=== PATIENT | female | born 1995 | race Caucasian/White ===

== ENCOUNTER 2018-04-06 13:06 | Emergency (ER) | payer BC, OTHER ==
[2018-04-06 14:13] VITALS: BP 115/73
[2018-04-06] MEDS ORDERED: HYDROmorphone 0.5 MG/0.5 ML SYRINGE IVPUSH ONE ×2 (14:57→17:26)
[2018-04-06] MEDS ORDERED: Sodium Chloride 0.9% 10 ML Syringe FLUSH PRN (14:57)
[2018-04-06] MEDS ORDERED: Ondansetron 4 MG/2 ML SDV IVPUSH ONE ×2 (14:58→17:49)
[2018-04-06] MEDS ORDERED: Sodium Chloride 0.9% 1,000 ML IV ONE ×2 (14:58→17:26)
--- NOTE | 2018-04-06 16:09 | EDM.PDOC ---
ED HPI GENERAL MEDICAL PROBLEM - General Chief Complaint: Abdominal Pain Stated Complaint: LOW ABDOMEN PAIN Time Seen by Provider: 04/06/18 14:45 Source of Information: Reports: Patient History Limitations: Reports: No Limitations - History of Present Illness INITIAL COMMENTS - FREE TEXT/NARRATIVE: 23-year-old female presents for evaluation and treatment of pain to her left lower abdomen and left flank. Reported that the symptoms started on Tuesday morning. She states that she's never had anything like this before. Pain is mostly been intermittent. She describes it as a shoe sharp stabbing pain currently pain is a 2 out of 10. She reports associated symptoms of back pain, chills, nausea and lightheadedness. No fever, vomiting, dizziness or syncope. She reports some dysuria couple of days ago. Unsure if she's had any hematuria she's currently on her menstrual cycle. Patient has a history of PCOS. She is currently trying to get . She is not on any contraceptives at this time. Last menstrual period prior to starting on Tuesday as about a week and half ago. She states this menstrual cycle is earlier than normal and heavier than normal. Duration: Day(s): (2) Location: Reports: Abdomen (left flank and left lower quadrant) Left Lower Abdominal Pain Score (Numeric/FACES): 10 - Related Data Allergies Allergy/AdvReac Type Severity Reaction Status Date / Time No Known Allergies Allergy Verified 04/06/18 14:13 Home Meds: Home Meds Escitalopram Oxalate [Lexapro] 20 mg PO DAILY 04/06/18 [History] metFORMIN HCl [Metformin HCl] 1,000 mg PO DAILY 04/06/18 [History] ED ROS GENERAL - Review of Systems Review Of Systems: See Below Constitutional: Reports: Chills. Denies: Fever Cardiovascular: Reports: Lightheadedness GI/Abdominal: Reports: Abdominal Pain (LLQ), Nausea. Denies: Vomiting : Reports: Other Musculoskeletal: Reports: Back Pain Neurological: Denies: Dizziness, Syncope ED EXAM, GI/ABD - Physical Exam Exam: See Below Exam Limited By: No Limitations General Appearance: Alert, WD/WN, No Apparent Distress, Obese Ears: Normal External Exam Nose: Normal Inspection Throat/Mouth: Normal Inspection, Normal Voice, No Airway Compromise Respiratory/Chest: No Respiratory Distress, Lungs Clear, Normal Breath Sounds Cardiovascular: Normal Peripheral Pulses, Regular Rate, Rhythm, No Murmur GI/Abdominal Exam: Normal Bowel Sounds, Soft, Tender (minor to the LLQ). No: Guarding, Rebound Neurological: Alert, Oriented, Normal Cognition Psychiatric: Normal Affect, Normal Mood Skin Exam: Warm, Dry, Normal Color Course - Vital Signs Last Recorded V/S: Last Vital Signs Temp 97.3 F 04/06/18 14:11 Pulse 82 04/06/18 14:11 Resp 16 04/06/18 14:11 BP 115/73 04/06/18 14:11 Pulse Ox 98 04/06/18 14:11 - Orders/Labs/Meds Labs: Laboratory Tests 04/06/18 04/06/18 04/06/18 Range/Units 15:40 16:24 16:24 WBC 6.31 (3.98-10.04) K/mm3 RBC 3.86 L (3.98-5.22) M/mm3 Hgb 12.0 (11.2-15.7) gm/L Hct 35.7 (34.1-44.9) % MCV 92.5 (79.4-94.8) fl MCH 31.1 (25.6-32.2) pg MCHC 33.6 (32.2-35.5) g/dl RDW Std Deviation 40.1 (36.4-46.3) fL Plt Count 305 (182-369) K/mm3 MPV 9.5 (9.4-12.3) fl Neutrophils % (Manual) 49 (40-60) % Band Neutrophils % 0 (0-10) % Lymphocytes % (Manual) 51 H (20-40) % Atypical Lymphs % 0 % Monocytes % (Manual) 0 L (2-10) % Eosinophils % (Manual) 0 L (0.7-5.8) % Basophils % (Manual) 0 L (0.1-1.2) Platelet Estimate Adequate Plt Morphology Comment Normal RBC Morph Comment Normal Sodium 141 (136-145) mEq/L Potassium 3.8 (3.5-5.1) mEq/L Chloride 108 H (98-107) mEq/L Carbon Dioxide 24 (21-32) mEq/L Anion Gap 12.8 (5-15) BUN 8 (7-18) mg/dL Creatinine 0.8 (0.55-1.02) mg/dL Est Cr Clr Drug Dosing TNP Estimated GFR (MDRD) > 60 (>60) mL/min BUN/Creatinine Ratio 10.0 L (14-18) Glucose 90 (74-106) mg/dL Calcium 8.5 (8.5-10.1) mg/dL Total Bilirubin 0.4 (0.2-1.0) mg/dL AST 17 (15-37) U/L ALT 31 (14-59) U/L Alkaline Phosphatase 84 (46-116) U/L Total Protein 6.5 (6.4-8.2) g/dl Albumin 3.4 (3.4-5.0) g/dl Globulin 3.1 gm/dL Albumin/Globulin Ratio 1.1 (1-2) Lipase (73-393) U/L HCG, Qual (NEGATIVE) Urine Color Yellow (Yellow) Urine Appearance Clear (Clear) Urine pH 7.0 (5.0-8.0) Ur Specific [place] 1.010 (1.005-1.030) Urine Protein Negative (Negative) Urine Glucose (UA) Negative (Negative) Urine Ketones Negative (Negative) Urine Occult Blood 3+ H (Negative) Urine Nitrite Negative (Negative) Urine Bilirubin Negative (Negative) Urine Urobilinogen 0.2 (0.2-1.0) Ur Leukocyte Esterase Negative (Negative) Urine RBC 0-5 (0-5) /hpf Urine WBC Not seen (0-5) /hpf Ur Epithelial Cells 0-5 (0-5) /hpf Urine Bacteria Not seen (FEW) /hpf Urine Mucus Not seen (FEW) /hpf 04/06/18 04/06/18 Range/Units 16:24 16:24 WBC (3.98-10.04) K/mm3 RBC (3.98-5.22) M/mm3 Hgb (11.2-15.7) gm/L Hct (34.1-44.9) % MCV (79.4-94.8) fl MCH (25.6-32.2) pg MCHC (32.2-35.5) g/dl RDW Std Deviation (36.4-46.3) fL Plt Count (182-369) K/mm3 MPV (9.4-12.3) fl Neutrophils % (Manual) (40-60) % Band Neutrophils % (0-10) % Lymphocytes % (Manual) (20-40) % Atypical Lymphs % % Monocytes % (Manual) (2-10) % Eosinophils % (Manual) (0.7-5.8) % Basophils % (Manual) (0.1-1.2) Platelet Estimate Plt Morphology Comment RBC Morph Comment Sodium (136-145) mEq/L Potassium (3.5-5.1) mEq/L Chloride (98-107) mEq/L Carbon Dioxide (21-32) mEq/L Anion Gap (5-15) BUN (7-18) mg/dL Creatinine (0.55-1.02) mg/dL Est Cr Clr Drug Dosing Estimated GFR (MDRD) (>60) mL/min BUN/Creatinine Ratio (14-18) Glucose (74-106) mg/dL Calcium (8.5-10.1) mg/dL Total Bilirubin (0.2-1.0) mg/dL AST (15-37) U/L ALT (14-59) U/L Alkaline Phosphatase (46-116) U/L Total Protein (6.4-8.2) g/dl Albumin (3.4-5.0) g/dl Globulin gm/dL Albumin/Globulin Ratio (1-2) Lipase 119 (73-393) U/L HCG, Qual Negative (NEGATIVE) Urine Color (Yellow) Urine Appearance (Clear) Urine pH (5.0-8.0) Ur Specific [place] (1.005-1.030) Urine Protein (Negative) Urine Glucose (UA) (Negative) Urine Ketones (Negative) Urine Occult Blood (Negative) Urine Nitrite (Negative) Urine Bilirubin (Negative) Urine Urobilinogen (0.2-1.0) Ur Leukocyte Esterase (Negative) Urine RBC (0-5) /hpf Urine WBC (0-5) /hpf Ur Epithelial Cells (0-5) /hpf Urine Bacteria (FEW) /hpf Urine Mucus (FEW) /hpf Meds: Medications Discontinued Medications Generic Name Dose Route Start Last Admin Trade Name Freq PRN Reason Stop Dose Admin Hydromorphone HCl 0.5 mg 04/06/18 14:57 04/06/18 15:46 Dilaudid IVPUSH 04/06/18 14:58 0.5 mg ONETIME ONE Administration Hydromorphone HCl 0.5 mg 04/06/18 17:26 04/06/18 17:31 Dilaudid IVPUSH 04/06/18 17:27 0.5 mg ONETIME ONE Administration Sodium Chloride 1,000 mls @ 999 mls/hr 04/06/18 14:58 04/06/18 15:44 Normal Saline IV 04/06/18 15:58 999 mls/hr ONETIME ONE Administration Sodium Chloride 1,000 mls @ 999 mls/hr 04/06/18 17:26 04/06/18 17:30 Normal Saline IV 04/06/18 18:26 999 mls/hr ONETIME ONE Administration Ketorolac Tromethamine 30 mg 04/06/18 19:57 04/06/18 20:05 Toradol IVPUSH 04/06/18 19:58 30 mg ONETIME ONE Administration Ondansetron HCl 4 mg 04/06/18 14:58 04/06/18 15:46 Zofran IVPUSH 04/06/18 14:59 4 mg ONETIME ONE Administration Ondansetron HCl 4 mg 04/06/18 17:49 04/06/18 17:59 Zofran IVPUSH 04/06/18 17:50 4 mg ONETIME ONE Administration Sodium Chloride 10 ml 04/06/18 14:57 04/06/18 15:48 Saline Flush FLUSH 10 ml ASDIRECTED PRN Administration Keep Vein Open - Radiology Interpretation Free Text/Narrative:: CT abdomen and pelvis Technique: Multiple axial sections were obtained from above the dome of the diaphragm inferiorly through the pubic symphysis. Intravenous and oral contrast was not utilized. Study has been performed as a ureteral stone protocol. Comparison: No prior abdominal imaging is available. Findings: Visualized lung bases are clear. Noncontrast appearance of the liver appears within normal limits. Spleen appears within normal limits. Surgical clips are seen from prior cholecystectomy. Aorta shows no aneurysmal dilatation. No retroperitoneal adenopathy or mesenteric abnormalities are seen. Appendix is seen and is normal. No pelvic mass or adenopathy is seen. Very minimal free fluid is seen within the pelvis which is felt to be physiologic and incidental. Kidneys show no abnormal calcifications. No ureteral dilatation is seen. No ureteral calculus is seen. Bone window settings were reviewed which appear within normal limits for the patient's age. Impression: 1. No renal calculi, ureteral dilatation or ureteral stone is seen. 2. Nothing acute is appreciated on noncontrast CT study of the abdomen and pelvis. Chest: Portable view of the chest was obtained. Comparison: Prior chest x-ray of 08/12/13. Heart size and mediastinum are normal. Lungs are clear. Bony structures are grossly intact. Impression: 1. Nothing acute is seen on portable chest x-ray. Transvaginal ultrasound impression per [facility]: 1. numerous peripherally aligned cysts/follicles in an enlarged ovaries. Clinical correlation for the possibility of PCOS is recommended. 2. Blood flow is documented in both ovaries. No definiy evidence of ovarian torsion. 3. A 1.0 cm focus of intermediate echogenicity that may represent a hemorrhagic cyst ni the right ovary. however, a stromal lesion cannot be entirely excluded. Follow-up ultrasound in 6-12 weeks is recommended. - Re-Assessments/Exams Free Text/Narrative Re-Assessment/Exam: 04/06/18 17:19 Labs returned, negative HCG. Will obtain CT abdomen and pelvis to rule out kidney stone. Pain worsening. Dilaudid ordered. 04/06/18 19:[address] results with the patient. After CT pain developed pain to her chest and underneath her breast. No pain there now. Will give toradol for pain as she feels cloudy on the dilaudid. Question possibly of ruptured cyst causing pain. Will obtain chest xray and ultrasound. 04/06/18 23:00 Reviewed imaging with the patient. Has a small amount of free fluid in the pelvis, question if when she was laying down this irritated her diaphragm. I feel this is likely an ovarian cyst causing her pain. Will discharge home with medication for pain and follow-up with ob. Discharge instructions as documented. Departure - Departure Time of Disposition: 23:04 Disposition: Home, Self-Care 01 Condition: Fair Clinical Impression: Ovarian cyst, PCOS (polycystic ovarian syndrome) - Discharge Information *PRESCRIPTION DRUG MONITORING PROGRAM REVIEWED*: Yes *COPY OF PRESCRIPTION DRUG MONITORING REPORT IN PATIENT SHARA: No Instructions: Ovarian Cyst, [id number] Referrals: Cherie Peter NP [Primary Care Provider] - Zhane Mcgrath MD [Physician] - Forms: ED Department Discharge Additional Instructions: you were given medication in the ER that can affect your ability to drive and operate machinery. Do not drive or operate machinery within 12 hours of taking prescription narcotic pain medication. 1 tab sublingual every 8 hours as needed for nausea. [id number] ibuprofen as needed for pain. Do not take more than 3200mg of ibuprofen from all sources in one day. For pain not relieved by ibuprofen, may take norco 1-2 tabs PO every 4-6 hours. [place] is habit forming, take as few of these as needed to control you pain. Do not drive or operate machinery within 12 hours of taking norco. Follow-up with Ob next week for a recheck of your symptoms. make sure you are drinking plenty of fluids. Please return to the ER should your symptoms change or worsen.
--- NOTE | 2018-04-06 18:21 | CT ---
CT abdomen and pelvis Technique: Multiple axial sections were obtained from above the dome of the diaphragm inferiorly through the pubic symphysis. Intravenous and oral contrast was not utilized. Study has been performed as a ureteral stone protocol. Comparison: No prior abdominal imaging is available. Findings: Visualized lung bases are clear. Noncontrast appearance of the liver appears within normal limits. Spleen appears within normal limits. Surgical clips are seen from prior cholecystectomy. Aorta shows no aneurysmal dilatation. No retroperitoneal adenopathy or mesenteric abnormalities are seen. Appendix is seen and is normal. No pelvic mass or adenopathy is seen. Very minimal free fluid is seen within the pelvis which is felt to be physiologic and incidental. Kidneys show no abnormal calcifications. No ureteral dilatation is seen. No ureteral calculus is seen. Bone window settings were reviewed which appear within normal limits for the patient's age. Impression: 1. No renal calculi, ureteral dilatation or ureteral stone is seen. 2. Nothing acute is appreciated on noncontrast CT study of the abdomen and pelvis. Diagnostic code #2
[2018-04-06] MEDS ORDERED: Ketorolac 30 MG/ML SDV IVPUSH ONE (19:57)
--- NOTE | 2018-04-07 07:52 | CR ---
Chest: Portable view of the chest was obtained. Comparison: Prior chest x-ray of 08/12/13. Heart size and mediastinum are normal. Lungs are clear. Bony structures are grossly intact. Impression: 1. Nothing acute is seen on portable chest x-ray. Diagnostic code #1
--- NOTE | 2018-04-07 07:52 | US ---
Pelvic ultrasound: Multiple real-time images were obtained transvaginally. Comparison: No prior pelvic ultrasound. Uterus is anteverted. No myometrial abnormality is identified. Endometrial thickness is 6 mm. Small amount of free fluid is noted within the pelvis which is incidental. Follicles are seen within both ovaries. Some of the follicles line up along the periphery of the ovaries raising the possibility of polycystic ovarian disease. No larger cyst or solid abnormality is seen. Ovaries are located normally and do not appear to be enlarged or swollen. Measurements: Uterus: Length 5.1 cm, AP height 2.7 cm, transverse width 4.1 cm Right ovary: 3.6 x 2.6 x 2.2 cm Left ovary: 3.7 x 2.1 x 2.4 cm Impression: 1. Peripheral follicles raising the possibility of polycystic ovarian disease. 2. Minimal free fluid within the cul-de-sac which is physiologic. 3. Pelvic ultrasound is otherwise unremarkable. Diagnostic code #2 I agree with preliminary report issued by [facility] ([facility] preliminary report dictated on 04/06/18, 11:51 PM Central Time)
== END 2018-04-06 23:18 | disposition home or self-care (01) ==
LOC: JD.ED 13:06
DX: E28.2 Polycystic ovarian syndrome (principal); Z79.899 Other long term (current) drug therapy
CPT/HCPCS: 36415; 71045; 74176; 76830; 80053; 81001; 83690; 84703; 85007; 85027; 96361; 96374; 96375; 96376; 99284; J1170; J1885; J2405; J7040; J7050

== ENCOUNTER 2018-04-17 14:41 | Emergency (ER) | payer BC, OTHER ==
[2018-04-17] MEDS ORDERED: LORazepam 2 MG/ML SDV IVPUSH ONE (14:51)
[2018-04-17] MEDS ORDERED: Sodium Chloride 0.9% 10 ML Syringe FLUSH PRN (14:52)
--- NOTE | 2018-04-17 15:08 | EDM.PDOC ---
ED HPI GENERAL MEDICAL PROBLEM - General Chief Complaint: Neuro Symptoms/Deficits Stated Complaint: NEUROLOGICAL Time Seen by Provider: 04/17/18 14:48 Source of Information: Reports: Patient, RN Notes Reviewed - History of Present Illness INITIAL COMMENTS - FREE TEXT/NARRATIVE: 23-year-old female has been brought here to the ED by a coworker per private vehicle symptoms of left-sided paresthesias and also weakness of her left hand and arm and left leg. This all apparently started at work about an hour ago. Also has had headache today and does have history of frequent migraine headaches. She feels short of breath and was found that the hyperventilating quite markedly upon arrival to ED. She also does have some numbness of the right hand but "not as much". There is no report of nausea or vomiting. She is not having major chest discomfort. There was a recent visit here to the ED with pelvic discomfort and she states that she may be looking at exploratory surgery with regard to ongoing pelvic discomfort. This was called as a stroke alert due to L sided weakness and numbness. I was in to see patient within 2 or 3 minutes of patient arrival. Headache Pain Score (Numeric/FACES): 6 - Related Data Allergies Allergy/AdvReac Type Severity Reaction Status Date / Time No Known Allergies Allergy Verified 04/17/18 14:54 Home Meds: Home Meds Escitalopram Oxalate [Lexapro] 20 mg PO DAILY 04/06/18 [History] metFORMIN HCl [Metformin HCl] 1,000 mg PO DAILY 04/06/18 [History] Social & Family History - Tobacco Use Smoking Status *Q: Current Some Day Smoker Years of Tobacco use: 3 Packs/Tins Daily: 0.2 - Caffeine Use Caffeine Use: Reports: Soda - Recreational Drug Use Recreational Drug Use: No ED ROS GENERAL - Review of Systems Review Of Systems: See Below Constitutional: Denies: Fever, Chills, Diaphoresis HEENT: Denies: Sinus Problem, Throat Pain Respiratory: Reports: Shortness of Breath. Denies: Pleuritic Chest Pain Cardiovascular: Denies: Chest Pain GI/Abdominal: Reports: Abdominal Pain (Patient has been having difficulty with pelvic discomfort at least intermittently over the past couple of weeks.). Denies: Nausea, Vomiting Musculoskeletal: Reports: No Symptoms Skin: Reports: No Symptoms Neurological: Reports: Numbness (Left face, bilateral hands left greater than right, left lower extremity), Weakness (Reported to have weakness of left upper and lower extremities) ED EXAM, NEURO - Physical Exam Exam: See Below General Appearance: Alert, Anxious, Moderate Distress (Hyperventilating on arrival to ED) Eye Exam: Bilateral Eye: PERRL Throat/Mouth: Normal Inspection Head Exam: Atraumatic. No: Facial Swelling Neck: Supple, Full Range of Motion Respiratory/Chest: Respiratory Distress. 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 DIRECTED Care 04/17/18 14:52 Active Sodium Chloride 0.9% [Saline Flush] Med 04/17/18 14:52 Active 10 ml FLUSH ASDIRECTED PRN Peripheral IV Insertion Adult [OM.PC] Stat Oth 04/17/18 14:50 Ordered Medication Orders Sodium Chloride (Saline Flush) 10 ml FLUSH ASDIRECTED PRN PRN Reason: Keep Vein Open Last Admin: 04/17/18 15:26 Dose: 10 ml Labs: Laboratory Tests 04/17/18 04/17/18 04/17/18 Range/Units 14:44 15:00 15:00 WBC 7.87 (3.98-10.04) K/mm3 RBC 4.12 (3.98-5.22) M/mm3 Hgb 12.9 (11.2-15.7) gm/L Hct 37.7 (34.1-44.9) % MCV 91.5 (79.4-94.8) fl MCH 31.3 (25.6-32.2) pg MCHC 34.2 (32.2-35.5) g/dl RDW Std Deviation 39.8 (36.4-46.3) fL Plt Count 322 (182-369) K/mm3 MPV 9.4 (9.4-12.3) fl Neut % (Auto) 55.4 (34.0-71.1) % Lymph % (Auto) 38.6 (19.3-51.7) % [place] % (Auto) 5.0 (4.7-12.5) % Eos % (Auto) 0.6 L (0.7-5.8) Baso % (Auto) 0.3 (0.1-1.2) % Neut # (Auto) 4.36 (1.56-6.13) K/mm3 Lymph # (Auto) 3.04 (1.18-3.74) K/mm3 [place] # (Auto) 0.39 H (0.24-0.36) K/mm3 Eos # (Auto) 0.05 (0.04-0.36) K/mm3 Baso # (Auto) 0.02 (0.01-0.08) K/mm3 Sodium 138 (136-145) mEq/L Potassium 3.6 (3.5-5.1) mEq/L Chloride 105 (98-107) mEq/L Carbon Dioxide 23 (21-32) mEq/L Anion Gap 13.6 (5-15) BUN 8 (7-18) mg/dL Creatinine 0.8 (0.55-1.02) mg/dL Est Cr Clr Drug Dosing 104.14 mL/min Estimated GFR (MDRD) > 60 (>60) mL/min BUN/Creatinine Ratio 10.0 L (14-18) Glucose 95 (74-106) mg/dL POC Glucose 82 (70-105) mg/dL Calcium 9.1 (8.5-10.1) mg/dL Total Bilirubin 0.4 (0.2-1.0) mg/dL AST 14 L (15-37) U/L ALT 18 (14-59) U/L Alkaline Phosphatase 94 (46-116) U/L Total Protein 7.2 (6.4-8.2) g/dl Albumin 3.8 (3.4-5.0) g/dl Globulin 3.4 gm/dL Albumin/Globulin Ratio 1.1 (1-2) HCG, Quant mIU/mL 04/17/18 Range/Units 15:00 WBC (3.98-10.04) K/mm3 RBC (3.98-5.22) M/mm3 Hgb (11.2-15.7) gm/L Hct (34.1-44.9) % MCV (79.4-94.8) fl MCH (25.6-32.2) pg MCHC (32.2-35.5) g/dl RDW Std Deviation (36.4-46.3) fL Plt Count (182-369) K/mm3 MPV (9.4-12.3) fl Neut % (Auto) (34.0-71.1) % Lymph % (Auto) (19.3-51.7) % [place] % (Auto) (4.7-12.5) % Eos % (Auto) (0.7-5.8) Baso % (Auto) (0.1-1.2) % Neut # (Auto) (1.56-6.13) K/mm3 Lymph # (Auto) (1.18-3.74) K/mm3 [place] # (Auto) (0.24-0.36) K/mm3 Eos # (Auto) (0.04-0.36) K/mm3 Baso # (Auto) (0.01-0.08) K/mm3 Sodium (136-145) mEq/L Potassium (3.5-5.1) mEq/L Chloride (98-107) mEq/L Carbon Dioxide (21-32) mEq/L Anion Gap (5-15) BUN (7-18) mg/dL Creatinine (0.55-1.02) mg/dL Est Cr Clr Drug Dosing mL/min Estimated GFR (MDRD) (>60) mL/min BUN/Creatinine Ratio (14-18) Glucose (74-106) mg/dL POC Glucose (70-105) mg/dL Calcium (8.5-10.1) mg/dL Total Bilirubin (0.2-1.0) mg/dL AST (15-37) U/L ALT (14-59) U/L Alkaline Phosphatase (46-116) U/L Total Protein (6.4-8.2) g/dl Albumin (3.4-5.0) g/dl Globulin gm/dL Albumin/Globulin Ratio (1-2) HCG, Quant 0.0 mIU/mL Meds: Medications Generic Name Dose Route Start Last Admin Trade Name Rachelle PRN Reason Stop Dose Admin Sodium Chloride 10 ml 04/17/18 14:52 04/17/18 15:26 Saline Flush FLUSH 10 ml ASDIRECTED PRN Administration Keep Vein Open Discontinued Medications Generic Name Dose Route Start Last Admin Trade Name Rachelle PRN Reason Stop Dose Admin Sodium Chloride 500 mls @ 999 mls/hr 04/17/18 15:09 04/17/18 15:20 Normal Saline IV 04/17/18 15:39 999 mls/hr .BOLUS ONE Administration Lorazepam 0.5 mg 04/17/18 14:51 04/17/18 15:23 Ativan IVPUSH 04/17/18 14:52 0.5 mg ONETIME ONE Administration Metoclopramide HCl 5 mg 04/17/18 15:09 04/17/18 15:24 Reglan IVPUSH 04/17/18 15:10 5 mg ONETIME ONE Administration - Re-Assessments/Exams Free Text/Narrative Re-Assessment/Exam: 04/17/18 16:43 16:00. Much more relaxed after Ativan 0.5 mg IV and time. Takes her headache is much better. Numbness is mostly gone. Strength left arm and leg much improved. 16:35. Neuro exam is completely back to normal. Does feel up to going home at this time. Discharge instructions as documented. Departure - Departure Time of Disposition: 16:41 Disposition: Home, Self-Care 01 Condition: Fair Clinical Impression: Migraine Qualifiers: Migraine type: hemiplegic Status migrainosus presence: without status migrainosus Intractability: not intractable Qualified Code(s): G43.409 - Hemiplegic migraine, not intractable, without status migrainosus - Discharge Information Referrals: Cherie Peter NP [Primary Care Provider] - Forms: ED Department Discharge Additional Instructions: Rest, drink plenty of water to maintain hydration, eat regular meals and snacks , he may take Tylenol or ibuprofen if needed for further discomfort. Follow-up with your regular medical provider as needed. Return to ED as needed if symptoms worsening in any way. - My Orders Last 24 Hours: My Active Orders 04/17/18 14:50 Peripheral IV Insertion Adult [OM.PC] Stat 04/17/18 14:52 Peripheral IV Care [RC] . DIRECTED Sodium Chloride 0.9% [Saline Flush] 10 ml FLUSH ASDIRECTED PRN - Assessment/Plan Last 24 Hours: My Active Orders 04/17/18 14:50 Peripheral IV Insertion Adult [OM.PC] Stat 04/17/18 14:52 Peripheral IV Care [RC] . DIRECTED Sodium Chloride 0.9% [Saline Flush] 10 ml FLUSH ASDIRECTED PRN
[2018-04-17] MEDS ORDERED: Metoclopramide 10 MG/2 ML SDV IVPUSH ONE (15:09)
[2018-04-17] MEDS ORDERED: Sodium Chloride 0.9% 500 ML IV ONE (15:09)
--- NOTE | 2018-04-17 15:27 | CT ---
Head CT Technique: Multiple axial sections through the brain were obtained. Intravenous contrast was not utilized. Comparison: Prior MRI brain of 05/03/13. Findings: Ventricles along with basal cisterns and sulci over the convexities are within normal limits for the patient's age. No abnormal parenchymal densities are seen. No evidence of intracranial hemorrhage. No midline shift or mass effect is seen. Bone window settings were reviewed which shows the visualized sinuses to appear clear. No acute calvarial abnormality is seen. Impression: 1. No acute intracranial abnormality is identified. Diagnostic code #1
[2018-04-17 17:00] VITALS: BP 104/55
== END 2018-04-17 16:54 | disposition home or self-care (01) ==
LOC: JD.ED 14:41
DX: G43.409 Hemiplegic migraine, not intractable, without status migrainosus (principal); F17.210 Nicotine dependence, cigarettes, uncomplicated; Z79.899 Other long term (current) drug therapy
CPT/HCPCS: 36415; 70450; 80053; 82962; 84702; 85025; 96361; 96374; 96375; 99285; J2060; J2765; J7040; J7050

== ENCOUNTER 2018-06-08 13:17 | Emergency (ER) | payer BC ==
[2018-06-08 13:25] VITALS: BP 111/83
[2018-06-08] MEDS ORDERED: HYDROmorphone 1 MG/ML Syringe IM ONE (13:36)
[2018-06-08] MEDS ORDERED: Ketorolac 60 MG/2 ML SDV IM ONE (13:37)
[2018-06-08] MEDS ORDERED: Diazepam 5 MG Tab PO ONE (13:37)
--- NOTE | 2018-06-08 13:47 | EDM.PDOC ---
ED HPI GENERAL MEDICAL PROBLEM - General Chief Complaint: Back Pain or Injury Stated Complaint: BACK PAIN Time Seen by Provider: 06/08/18 13:20 Source of Information: Reports: Patient History Limitations: Reports: No Limitations - History of Present Illness INITIAL COMMENTS - FREE TEXT/NARRATIVE: The patient presents with low back pain. This is a chronic issue since the patient was 7. She did a jump for cheer leading and hurt her back. She has had troubles since. She sees Sahra Peter and Dr oDoley. Dr Dooley did an x- ray over a year ago and thought she may have signs of early ankylosing spondylolitis. She has been doing lots of traveling lately and the pain is worse. The pain is worse on the right side and it travels down her right leg. She has some numbness in both legs at times. She has no bowel or bladder problems. Onset: Gradual Duration: Week(s): Location: Reports: Back Quality: Reports: Sharp Severity: Severe Improves with: Reports: None Worsens with: Reports: None Associated Symptoms: Reports: No Other Symptoms Treatments LABORER: Reports: NSAIDS Lower Back Pain Score (Numeric/FACES): 10 - Related Data Allergies Allergy/AdvReac Type Severity Reaction Status Date / Time No Known Allergies Allergy Verified 06/08/18 13:21 Home Meds: Home Meds Escitalopram Oxalate [Lexapro] 20 mg PO DAILY 04/06/18 [History] metFORMIN HCl [Metformin HCl] 1,000 mg PO DAILY 04/06/18 [History] Cyclobenzaprine [Flexeril] 10 mg PO TID PRN #20 tab 06/08/18 [Rx] Hydrocodone/Acetaminophen [Hydrocodon-Acetaminophen 5-325] 1 - 2 each PO Q6HR PRN #20 tablet 06/08/18 [Rx] LORazepam 0.5 mg PO BID PRN 06/08/18 [History] Meloxicam 15 mg PO DAILY 06/08/18 [History] Rizatriptan Benzoate [Rizatriptan] 10 mg PO ASDIRECTED PRN 06/08/18 [History] Topiramate 50 mg PO BEDTIME 06/08/18 [History] chlorproMAZINE [Thorazine] 25 mg PO BID 06/08/18 [History] traZODone HCl [Trazodone HCl] 50 mg PO BEDTIME 06/08/18 [History] Past Medical History HEENT History: Reports: Impaired Vision Cardiovascular History: Reports: Arrhythmia Other Cardiovascular History: Hx of SVT at age 15 was evaluated by net mvc developer about one year ago, placed on holter no events noted. Gastrointestinal History: Reports: Cholelithiasis Genitourinary History: Reports: Other (See Below) Other Genitourinary History: states today has urgency but unable to void today. Pt states has had kidney's looked at in past and they are ok. MANAGER OF CASE History: Reports: Dysfunctional Uterine Bleeding, Other (See Below) Other MANAGER OF CASE History: PCOS states last period 2 weeks ago tomorrow [facility] [place]. States is currently on antibiotic for Pelvic infection. STD testing done last week Musculoskeletal History: Reports: Other (See Below) Other Musculoskeletal History: carpal tunnel in both wrist Neurological History: Reports: Headaches, Chronic, Migraines Dermatologic History: Reports: Other (See Below) Other Dermatologic History: heat rash on arms - Past Surgical History HEENT Surgical History: Reports: Oral Surgery Other HEENT Surgeries/Procedures: wisdom teeth removed GI Surgical History: Reports: Cholecystectomy Social & Family History - Family History Cardiac: Reports: CAD Musculoskeletal: Reports: Arthritis Hematologic: Reports: Other (See Below) Other Hematologic Family History: sister from rare blood disorder - Tobacco Use Smoking Status *Q: Never Smoker - Caffeine Use Caffeine Use: Reports: Soda - Recreational Drug Use Recreational Drug Use: No ED ROS GENERAL - Review of Systems Review Of Systems: See Below Constitutional: Reports: No Symptoms HEENT: Reports: No Symptoms Respiratory: Reports: No Symptoms Cardiovascular: Reports: No Symptoms Endocrine: Reports: No Symptoms GI/Abdominal: Reports: No Symptoms : Reports: No Symptoms Musculoskeletal: Reports: Back Pain (lower) ED EXAM,LOWER BACK PAIN/INJURY - Physical Exam Exam: See Below Exam Limited By: No Limitations General Appearance: Alert, No Apparent Distress Ears: Normal External Exam Nose: Normal Inspection Head: Atraumatic, Normocephalic Neck: Normal Inspection Respiratory/Chest: No Respiratory Distress, Lungs Clear, Normal Breath Sounds Cardiovascular: Regular Rate, Rhythm, No Edema, No Murmur GI/Abdominal: Soft, Non-Tender, No Organomegaly, No Mass Back Exam: Other (Paion upon palpation to the righ lower back that is severe) Course - Vital Signs Last Recorded V/S: Last Vital Signs Temp 98.7 F 06/08/18 13:22 Pulse 108 H 06/08/18 13:22 Resp 18 06/08/18 13:22 BP 111/83 06/08/18 13:22 Pulse Ox 100 06/08/18 13:22 - Orders/Labs/Meds Meds: Medications Discontinued Medications Generic Name Dose Route Start Last Admin Trade Name Freq PRN Reason Stop Dose Admin Diazepam 5 mg 06/08/18 13:37 Valium. PO 06/08/18 13:38 ONETIME ONE Hydromorphone HCl 1 mg 06/08/18 13:36 Dilaudid IM 06/08/18 13:37 ONETIME ONE Ketorolac Tromethamine 60 mg 06/08/18 13:37 Toradol IM 06/08/18 13:38 ONETIME ONE - Re-Assessments/Exams Free Text/Narrative Re-Assessment/Exam: 06/08/18 13:52 I ordered dilaudid 1mg IM, toradol 60mg IM and valium 5mg by mouth. Departure - Departure Time of Disposition: 13:55 Disposition: Home, Self-Care 01 Condition: Good Clinical Impression: Chronic low back pain Qualifiers: Back pain laterality: right Sciatica presence: with sciatica Sciatica laterality: sciatica of right side Qualified Code(s): M54.41 - Lumbago with sciatica, right side; G89.29 - Other chronic pain - Discharge Information *PRESCRIPTION DRUG MONITORING PROGRAM REVIEWED*: No *COPY OF PRESCRIPTION DRUG MONITORING REPORT IN PATIENT SHARA: No Prescriptions: Hydrocodone/Acetaminophen [Hydrocodon-Acetaminophen 5-325] 1 - 2 each PO Q6HR PRN #20 tablet PRN Reason: Pain Cyclobenzaprine [Flexeril] 10 mg PO TID PRN #20 tab PRN Reason: Pain Referrals: Cherie Peter WIRE WINDING MACHINE OPERATOR [Primary Care Provider] - 1 Week Forms: ED Department Discharge Additional Instructions: Take the meloxicam as prescribed. Take the flexeril as needed for pain and you may also take a hydrocodone. Please return if you are worse. Follow up with Sahra Peter to talk about possibly getting an MRI of your back.
== END 2018-06-08 14:16 | disposition home or self-care (01) ==
LOC: JD.ED 13:17
DX: G89.29 Other chronic pain (principal); M54.41 Lumbago with sciatica, right side; Z79.84 Long term (current) use of oral hypoglycemic drugs; Z79.899 Other long term (current) drug therapy
CPT/HCPCS: 96372; 99283; A9270; J1170; J1885

== ENCOUNTER 2018-09-22 17:21 | Emergency (ER) | payer BC ==
[2018-09-22 17:43] VITALS: BP 119/78
[2018-09-22] MEDS ORDERED: Ketorolac 30 MG/ML SDV IM ONE (18:49)
--- NOTE | 2018-09-22 19:30 | EDM.PDOC ---
ED HPI GENERAL MEDICAL PROBLEM - General Chief Complaint: Respiratory Problem Stated Complaint: SOB AND DIFFICULTY BREATHING AFTER BEING CHOKED Time Seen by Provider: 09/22/18 17:46 Source of Information: Reports: Patient, Old Records, RN Notes Reviewed History Limitations: Reports: No Limitations - History of Present Illness INITIAL COMMENTS - FREE TEXT/NARRATIVE: Patient is a 23 year old female who presents to the ED for the evaluation of difficulty swallowing. She states that her and her "were fooling around and trying new things". They were trying some choking play and she ended up actually having a seizure in result of this. She went to Sahra Peter in clinic today for further evaluation because it hurt to swallow and she felt like it was harder to get her air in her lungs. An ultrasound was done in the clinic and demonstrated some small hematomas in her neck. She would rater her pain at a 9/10, and feels like she has to talk quieter due to this pain. Sahra Peter referred her to the ED because of this difficulty swallowing. She states that she has been eating soft foods. She has not taken anything for pain. Throat Pain Score (Numeric/FACES): 8 - Related Data Allergies Allergy/AdvReac Type Severity Reaction Status Date / Time No Known Allergies Allergy Verified 06/08/18 13:21 Home Meds: Home Meds LORazepam 0.5 mg PO BID PRN 06/08/18 [History] Past Medical History HEENT History: Reports: Impaired Vision Cardiovascular History: Reports: Arrhythmia Other Cardiovascular History: Hx of SVT at age 15 was evaluated by bindery worker about one year ago, placed on holter no events noted. Gastrointestinal History: Reports: Cholelithiasis Genitourinary History: Reports: Other (See Below) Other Genitourinary History: states today has urgency but unable to void today. Pt states has had kidney's looked at in past and they are ok. REVENUE COORDINATOR History: Reports: Dysfunctional Uterine Bleeding, Other (See Below) Other REVENUE COORDINATOR History: PCOS states last period 2 weeks ago tomorrow [facility] [place]. States is currently on antibiotic for Pelvic infection. STD testing done last week Musculoskeletal History: Reports: Other (See Below) Other Musculoskeletal History: carpal tunnel in both wrist Neurological History: Reports: Headaches, Chronic, Migraines, Seizure Other Neuro History: seizure from choking episode Psychiatric History: Reports: Anxiety Dermatologic History: Reports: Other (See Below) Other Dermatologic History: heat rash on arms - Past Surgical History HEENT Surgical History: Reports: Oral Surgery Other HEENT Surgeries/Procedures: wisdom teeth removed GI Surgical History: Reports: Cholecystectomy Social & Family History - Family History Family Medical History: Noncontributory Cardiac: Reports: CAD Musculoskeletal: Reports: Arthritis Hematologic: Reports: Other (See Below) Other Hematologic Family History: sister from rare blood disorder - Tobacco Use Smoking Status *Q: Current Every Day Smoker Years of Tobacco use: 1 Packs/Tins Daily: 0.2 - Caffeine Use Caffeine Use: Reports: Coffee, Soda - Recreational Drug Use Recreational Drug Use: No ED ROS GENERAL - Review of Systems Review Of Systems: See Below Constitutional: Denies: Fever, Chills HEENT: Reports: Throat Pain, Throat Swelling Respiratory: Reports: Shortness of Breath (hard to get air in) Cardiovascular: Reports: No Symptoms Endocrine: Reports: No Symptoms GI/Abdominal: Reports: No Symptoms : Reports: No Symptoms Musculoskeletal: Reports: No Symptoms Skin: Reports: No Symptoms Neurological: Reports: No Symptoms Psychiatric: Reports: No Symptoms Hematologic/Lymphatic: Reports: No Symptoms Immunologic: Reports: No Symptoms ED EXAM, GENERAL - Physical Exam Exam: See Below Exam Limited By: No Limitations General Appearance: Alert, WD/WN, No Apparent Distress Eye Exam: Bilateral Eye: EOMI, Normal Inspection, Vision Changes Ears: Normal External Exam Nose: Normal Inspection Throat/Mouth: Normal Inspection, Normal Oropharynx, No Airway Compromise Head: Atraumatic, Normocephalic Neck: Normal Inspection, Supple, Full Range of Motion, Tender Lateral (tender bilaterally), Tender Midline Respiratory/Chest: No Respiratory Distress, Lungs Clear, Normal Breath Sounds, No Accessory Muscle Use, Chest Non-Tender Cardiovascular: Normal Peripheral Pulses, Regular Rate, Rhythm, No Murmur Neurological: Alert, Oriented, Normal Cognition, No Motor/Sensory Deficits Psychiatric: Normal Affect, Normal Mood Skin Exam: Warm, Dry, Intact, Normal Color, No Rash Course - Vital Signs Last Recorded V/S: Last Vital Signs Temp 98.1 F 09/22/18 17:41 Pulse 95 09/22/18 17:41 Resp 20 09/22/18 17:41 BP 119/78 09/22/18 17:41 Pulse Ox 100 09/22/18 17:41 - Orders/Labs/Meds Meds: Medications Discontinued Medications Generic Name Dose Route Start Last Admin Trade Name Rachelle PRN Reason Stop Dose Admin Ketorolac Tromethamine 30 mg 09/22/18 18:49 09/22/18 18:57 Toradol IM 09/22/18 18:50 30 mg ONETIME ONE Administration - Re-Assessments/Exams Free Text/Narrative Re-Assessment/Exam: 09/22/18 19:34 Pt presents to ED for the evaluation of neck pain/difficulty swallowing. Her US demonstrated 2 hematomas with recommendation of CT with contrast in 1-2 weeks if they have not resolved. 30 mg IM toradol was ordered for pain relief and this did help her pain, it is now at 01/03. It is likely that she will be sore for a few days, will recommend ice packs to the area and a soft diet with 600 mg ibuprofen every 6 hours for pain. Departure - Departure Time of Disposition: 19:41 Disposition: Home, Self-Care 01 Condition: Fair Clinical Impression: Difficulty in swallowing Qualifiers: Dysphagia type: unspecified Qualified Code(s): R13.10 - Dysphagia, unspecified - Discharge Information *PRESCRIPTION DRUG MONITORING PROGRAM REVIEWED*: No *COPY OF PRESCRIPTION DRUG MONITORING REPORT IN PATIENT SHARA: No Instructions: Dysphagia Referrals: Cherie Peter NP [Primary Care Provider] - Additional Instructions: You have been evaluated in the ED for difficulty swallowing. Please take 600 mg ibuprofen every 6 hours for pain relief. Please use ice packs to your neck. Recommend soft diet for the next few days until it is no longer painful to swallow. CT with IV contrast was recommended in 1-2 weeks if symptoms have not resolved. Please return to ED if your symptoms should change or worsen.
== END 2018-09-22 19:55 | disposition home or self-care (01) ==
LOC: JD.ED 17:21
DX: R13.10 Dysphagia, unspecified (principal); F17.210 Nicotine dependence, cigarettes, uncomplicated; Z79.899 Other long term (current) drug therapy
CPT/HCPCS: 96372; 99284; J1885

== ENCOUNTER 2018-11-03 09:53 | Emergency (ER) | payer OTHER, BC ==
[2018-11-03 10:02] VITALS: BP 151/81
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
== END 2018-11-03 10:30 | disposition home or self-care (01) ==
LOC: JD.ED 09:53
DX: T33.822A Superficial frostbite of left foot, initial encounter (principal); Y99.0 Civilian activity done for income or pay; F17.210 Nicotine dependence, cigarettes, uncomplicated; X31.XXXA Exposure to excessive natural cold, initial encounter
CPT/HCPCS: 99282; 99283

== ENCOUNTER 2018-11-27 05:28 | Emergency (ER) | payer BC, OTHER ==
[2018-11-27 05:36] VITALS: BP 112/77
[2018-11-27] MEDS ORDERED: Sodium Chloride 0.9% 1,000 ML IV STA (05:41)
[2018-11-27] MEDS ORDERED: Sodium Chloride 0.9% 10 ML Syringe FLUSH PRN (05:47)
[2018-11-27] MEDS ORDERED: Ondansetron 4 MG/2 ML SDV IVPUSH ONE (05:48)
--- NOTE | 2018-11-27 05:53 | EDM.PDOC ---
ED HPI GENERAL MEDICAL PROBLEM - General Chief Complaint: General Stated Complaint: 103.0 VOMMITTING,COUGH SOB Time Seen by Provider: 11/27/18 05:42 Source of Information: Reports: Patient, RN Notes Reviewed - History of Present Illness INITIAL COMMENTS - FREE TEXT/NARRATIVE: 23 year old female with onset of cough, sore throat, congestions 2 days ago, has had fever, chills, [place]. Vomiting with coughing and gagging. No diarrhea. She did get a flu shot last fall. Has been around a lot of sick children. Generalized Pain Score (Numeric/FACES): 3 - Related Data Allergies Allergy/AdvReac Type Severity Reaction Status Date / Time No Known Allergies Allergy Verified 11/27/18 05:32 Home Meds: Home Meds . [No Known Home Meds] 11/03/18 [History] Past Medical History HEENT History: Reports: Impaired Vision Cardiovascular History: Reports: Arrhythmia Other Cardiovascular History: Hx of SVT at age 15 was evaluated by medical supply technician about one year ago, placed on holter no events noted. Gastrointestinal History: Reports: Cholelithiasis Genitourinary History: Reports: Other (See Below) Other Genitourinary History: states today has urgency but unable to void today. Pt states has had kidney's looked at in past and they are ok. 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 States is currently on antibiotic for Pelvic infection. STD testing done last week Musculoskeletal History: Reports: Other (See Below) Other Musculoskeletal History: carpal tunnel in both wrist Neurological History: Reports: Headaches, Chronic, Migraines, Seizure Other Neuro History: seizure from choking episode Psychiatric History: Reports: Anxiety Dermatologic History: Reports: Other (See Below) Other Dermatologic History: heat rash on arms - Past Surgical History HEENT Surgical History: Reports: Oral Surgery Other HEENT Surgeries/Procedures: wisdom teeth removed GI Surgical History: Reports: Cholecystectomy Social & Family History - Family History Family Medical History: Noncontributory Cardiac: Reports: CAD Musculoskeletal: Reports: Arthritis Hematologic: Reports: Other (See Below) Other Hematologic Family History: sister from rare blood disorder - Tobacco Use Smoking Status *Q: Former Smoker Used Tobacco, but Quit: Yes Month/Year Tobacco Last Used: September 2018 - Caffeine Use Caffeine Use: Reports: Coffee - Recreational Drug Use Recreational Drug Use: No - Living Situation & Occupation Living situation: Reports: Occupation: Employed ED ROS GENERAL - Review of Systems Review Of Systems: See Below Constitutional: Reports: Fever, Chills HEENT: Reports: Rhinitis, Sinus Problem, Throat Pain Respiratory: Reports: Shortness of Breath, Cough Cardiovascular: Reports: Chest Pain GI/Abdominal: Denies: Abdominal Pain, Diarrhea, Vomiting Musculoskeletal: Reports: Other (muscle achiness) Skin: Reports: No Symptoms Neurological: Reports: Headache ED EXAM, GENERAL - Physical Exam Exam: See Below General Appearance: Alert, Mild Distress Nose: Normal Inspection Throat/Mouth: Normal Inspection Head: Atraumatic. No: Facial Swelling Neck: Supple Respiratory/Chest: No Respiratory Distress, Lungs Clear, Normal Breath Sounds. No: Rhonchi, Wheezing Cardiovascular: Tachycardia GI/Abdominal: Soft, Non-Tender Back Exam: No: CVA Tenderness (L), CVA Tenderness (R) Extremities: No: Pedal Edema Skin Exam: Warm, Dry, Normal Color Course - Vital Signs Last Recorded V/S: Last Vital Signs Temp 99.8 F 11/27/18 06:48 Pulse 120 H 11/27/18 07:37 Resp 20 11/27/18 05:32 BP 112/77 11/27/18 05:32 Pulse Ox 97 11/27/18 05:32 - Orders/Labs/Meds Labs: Laboratory Tests 11/27/18 11/27/18 Range/Units 05:42 05:42 WBC 6.22 (3.98-10.04) K/mm3 RBC 3.99 (3.98-5.22) M/mm3 Hgb 12.3 (11.2-15.7) gm/L Hct 37.1 (34.1-44.9) % MCV 93.0 (79.4-94.8) fl MCH 30.8 (25.6-32.2) pg MCHC 33.2 (32.2-35.5) g/dl RDW Std Deviation 41.5 (36.4-46.3) fL Plt Count 307 (182-369) K/mm3 MPV 9.1 L (9.4-12.3) fl Neut % (Auto) 79.5 H (34.0-71.1) % Lymph % (Auto) 12.1 L (19.3-51.7) % Baxter % (Auto) 7.7 (4.7-12.5) % Eos % (Auto) 0.3 L (0.7-5.8) Baso % (Auto) 0.2 (0.1-1.2) % Neut # (Auto) 4.95 (1.56-6.13) K/mm3 Lymph # (Auto) 0.75 L (1.18-3.74) K/mm3 Baxter # (Auto) 0.48 H (0.24-0.36) K/mm3 Eos # (Auto) 0.02 L (0.04-0.36) K/mm3 Baso # (Auto) 0.01 (0.01-0.08) K/mm3 Sodium 135 L (136-145) mEq/L Potassium 3.5 (3.5-5.1) mEq/L Chloride 100 (98-107) mEq/L Carbon Dioxide 23 (21-32) mEq/L Anion Gap 15.5 H (5-15) BUN 6 L (7-18) mg/dL Creatinine 0.9 (0.55-1.02) mg/dL Est Cr Clr Drug Dosing 92.56 mL/min Estimated GFR (MDRD) > 60 (>60) mL/min BUN/Creatinine Ratio 6.7 L (14-18) Glucose 110 H (74-106) mg/dL Calcium 8.7 (8.5-10.1) mg/dL Total Bilirubin 0.4 (0.2-1.0) mg/dL AST 13 L (15-37) U/L ALT 19 (14-59) U/L Alkaline Phosphatase 92 (46-116) U/L Total Protein 7.2 (6.4-8.2) g/dl Albumin 3.5 (3.4-5.0) g/dl Globulin 3.7 gm/dL Albumin/Globulin Ratio 1.0 (1-2) Meds: Medications Discontinued Medications Generic Name Dose Route Start Last Admin Trade Name Freq PRN Reason Stop Dose Admin Acetaminophen 975 mg 11/27/18 06:41 11/27/18 06:48 Tylenol PO 11/27/18 06:42 975 mg NOW ONE Administration Hydromorphone HCl 1 mg 11/27/18 06:41 11/27/18 06:49 Dilaudid IVPUSH 11/27/18 06:42 1 mg ONETIME ONE Administration Sodium Chloride 1,000 mls @ 999 mls/hr 11/27/18 05:41 11/27/18 05:46 Normal Saline IV 11/27/18 06:41 999 mls/hr NOW STA Administration Ondansetron HCl 4 mg 11/27/18 05:48 11/27/18 05:51 Zofran IVPUSH 11/27/18 05:49 4 mg ONETIME ONE Administration Sodium Chloride 10 ml 11/27/18 05:47 11/27/18 05:49 Saline Flush FLUSH 10 ml ASDIRECTED PRN Administration Keep Vein Open - Re-Assessments/Exams Free Text/Narrative Re-Assessment/Exam: 11/29/18 04:51 Did test positive for influenza, have given 1 L fluid, IV Zofran, IV Dilaudid and she does feel somewhat better with all of that, chest x-ray is clear, discharge instructions as documented. Departure - Departure Time of Disposition: 07:15 Disposition: Home, Self-Care 01 Condition: Fair Clinical Impression: Influenza A - Discharge Information Instructions: Influenza, Adult, [id number] Referrals: Cherie Peter NP [Primary Care Provider] - Forms: ED Department Discharge, ED Return to Work/School Form Additional Instructions: Continue to drink plenty of water to maintain hydration, tylenol q 6 to 8 hr as needed for fever, headache or other discomfort, you may take ibuprofen or motrin in between doses of tylenol for further relief as needed. Vaporizer or steam as needed. Your symptoms of fever, headache, other achiness will get better over the next 24 hours or so. The cough will take 7 to 10 days to resolve. Follow up clinic if not much better by Weds. Return to ED if symptoms worsening in any way.
[2018-11-27] MEDS ORDERED: Acetaminophen 325 MG Tab PO ONE (06:41)
[2018-11-27] MEDS ORDERED: HYDROmorphone 1 MG/ML Syringe IVPUSH ONE (06:41)
--- NOTE | 2018-11-27 08:20 | CR ---
Chest: Portable view of the chest was obtained. Comparison: Prior chest x-ray of 04/06/18. Heart size and mediastinum are normal. Lungs are clear. Bony structures are unremarkable. Impression: 1. Nothing acute is seen on portable chest x-ray. Diagnostic code #1
== END 2018-11-27 07:37 | disposition home or self-care (01) ==
LOC: JD.ED 05:28
DX: J10.1 Influenza due to other identified influenza virus with other respiratory manifestations (principal); Z90.49 Acquired absence of other specified parts of digestive tract; Z87.891 Personal history of nicotine dependence
CPT/HCPCS: 36415; 71045; 80053; 85025; 87804; 96361; 96374; 96375; 99284; A9270; J1170; J2405; J7040

== ENCOUNTER 2019-01-29 09:55 | Emergency (ER) | payer BC ==
[2019-01-29 10:11] VITALS: BP 134/79
[2019-01-29] MEDS ORDERED: HYDROmorphone 1 MG/ML Syringe IM ONE (10:26)
[2019-01-29] MEDS ORDERED: Cyclobenzaprine 10 MG Tab PO ONE (10:27)
[2019-01-29] MEDS ORDERED: Ketorolac 60 MG/2 ML SDV IM ONE (10:27)
--- NOTE | 2019-01-29 10:34 | EDM.PDOCBH ---
ED HPI GENERAL MEDICAL PROBLEM - General Chief Complaint: Behavioral/Psych Stated Complaint: SUICIDAL THOUGHTS Time Seen by Provider: 01/29/19 10:10 Source of Information: Reports: Patient, Family History Limitations: Reports: No Limitations - History of Present Illness INITIAL COMMENTS - FREE TEXT/NARRATIVE: The patient presents with right lower back pain with radiation down her right leg. She has a history of bulging disc in the past. She had an MRI over a year ago. This pain has started again a few weeks ago. She denies any specific injury. She has no numbness or weakness in her legs. She has no bowel or bladder problems. She says the pain has been relentless and is keeping her up at night. She also has some issues with her family. The pain and issues with her family are causing her to be depressed and she is having thoughts of hurting herself. She has never hurt herself in the past. Her is with her. Onset: Gradual Duration: Week(s): Location: Reports: Back Quality: Reports: Sharp Severity: Severe Improves with: Reports: Immobilization Worsens with: Reports: Movement Associated Symptoms: Reports: No Other Symptoms - Related Data Allergies Allergy/AdvReac Type Severity Reaction Status Date / Time No Known Allergies Allergy Verified 11/27/18 05:32 Home Meds: Home Meds Cyclobenzaprine [Flexeril] 10 mg PO TID PRN #20 tab 01/29/19 [Rx] Escitalopram Oxalate [Lexapro] 20 mg PO DAILY 01/29/19 [History] Hydrocodone/Acetaminophen [Hydrocodon-Acetaminophen 5-325] 1 - 2 each PO Q6HR PRN #20 tablet 01/29/19 [Rx] LORazepam [Ativan] 0.5 mg PO DAILY PRN 01/29/19 [History] Varenicline Tartrate [Chantix] 1 mg PO DAILY 01/29/19 [History] Past Medical History HEENT History: Reports: Impaired Vision Cardiovascular History: Reports: Arrhythmia Other Cardiovascular History: Hx of SVT at age 15 was evaluated by crude tester about one year ago, placed on holter no events noted. Gastrointestinal History: Reports: Cholelithiasis Genitourinary History: Reports: Other (See Below) Other Genitourinary History: states today has urgency but unable to void today. Pt states has had kidney's looked at in past and they are ok. 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 States is currently on antibiotic for Pelvic infection. STD testing done last week Musculoskeletal History: Reports: Back Pain, Chronic, Other (See Below) Other Musculoskeletal History: carpal tunnel in both wrist Neurological History: Reports: Headaches, Chronic, Migraines, Seizure Other Neuro History: seizure from choking episode Psychiatric History: Reports: Anxiety, Suicidal Ideation Dermatologic History: Reports: Other (See Below) Other Dermatologic History: heat rash on arms - Past Surgical History HEENT Surgical History: Reports: Oral Surgery Other HEENT Surgeries/Procedures: wisdom teeth removed GI Surgical History: Reports: Cholecystectomy Social & Family History - Family History Family Medical History: Noncontributory Cardiac: Reports: CAD Musculoskeletal: Reports: Arthritis Hematologic: Reports: Other (See Below) Other Hematologic Family History: sister from rare blood disorder - Tobacco Use Smoking Status *Q: Current Some Day Smoker Years of Tobacco use: 3 Packs/Tins Daily: 0.1 - Caffeine Use Caffeine Use: Reports: Coffee, Soda - Recreational Drug Use Recreational Drug Use: No - Living Situation & Occupation Living situation: Reports: Occupation: Employed ED ROS GENERAL - Review of Systems Review Of Systems: See Below Constitutional: Reports: No Symptoms HEENT: Reports: No Symptoms Respiratory: Reports: No Symptoms Cardiovascular: Reports: No Symptoms Endocrine: Reports: No Symptoms GI/Abdominal: Reports: No Symptoms : Reports: No Symptoms Musculoskeletal: Reports: Back Pain Skin: Reports: No Symptoms ED EXAM, BEHAVIORAL HEALTH - Physical Exam Exam: See Below Exam Limited By: No Limitations General Appearance: Alert, No Apparent Distress Ears: Normal External Exam Nose: Normal Inspection Throat/Mouth: Normal Inspection Head: Atraumatic, Normocephalic Neck: Normal Inspection Respiratory/Chest: No Respiratory Distress, Lungs Clear, Normal Breath Sounds Cardiovascular: Regular Rate, Rhythm, No Edema, No Murmur GI/Abdominal: Soft, Non-Tender, No Organomegaly, No Mass Back Exam: Other (Moderate pain to the right low back) Extremities: Normal Inspection Neurological: Alert, No Motor/Sensory Deficits, Oriented x 3 COURSE, BEHAVIORAL HEALTH COMP - Course Vital Signs: Last Vital Signs Temp 98.7 F 01/29/19 10:05 Pulse 89 01/29/19 10:05 Resp 18 01/29/19 10:05 BP 134/79 01/29/19 10:05 Pulse Ox 99 01/29/19 10:05 Orders, Labs, Meds: Medications Discontinued Medications Generic Name Dose Route Start Last Admin Trade Name Rachelle PRN Reason Stop Dose Admin Cyclobenzaprine HCl 10 mg 01/29/19 10:27 Flexeril PO 01/29/19 10:28 ONETIME ONE Hydromorphone HCl 1 mg 01/29/19 10:26 Dilaudid IM 01/29/19 10:27 ONETIME ONE Ketorolac Tromethamine 60 mg 01/29/19 10:27 Toradol IM 01/29/19 10:28 ONETIME ONE Re-Assessment/Re-Exam: I have ordered an MRI of her lumbar spine. I also will give her a shot of dilaudid and toradol and some flexeril orally. Departure - Departure Time of Disposition: 10:50 Disposition: Home, Self-Care 01 Condition: Good Clinical Impression: Low back pain Qualifiers: Chronicity: chronic Back pain laterality: right Sciatica presence: with sciatica Sciatica laterality: sciatica of right side Qualified Code(s): M54.41 - Lumbago with sciatica, right side; G89.29 - Other chronic pain - Discharge Information *PRESCRIPTION DRUG MONITORING PROGRAM REVIEWED*: No *COPY OF PRESCRIPTION DRUG MONITORING REPORT IN PATIENT SHARA: No Prescriptions: Hydrocodone/Acetaminophen [Hydrocodon-Acetaminophen 5-325] 1 - 2 each PO Q6HR PRN #20 tablet PRN Reason: Pain Cyclobenzaprine [Flexeril] 10 mg PO TID PRN #20 tab PRN Reason: Pain Referrals: Cherie Peter GROUP EXERCISE MANAGER [Primary Care Provider] - 1 Week Forms: ED Department Discharge Additional Instructions: I have ordered an MRI of your low back at 9am on February 12. Please come early to register. Take motrin as needed for pain and pepcid to help with any upset stomach. Take the flexeril and hydrocodone as needed after driving and not [address] Please return if you are worse.
== END 2019-01-29 11:10 | disposition home or self-care (01) ==
LOC: JD.ED 09:55
DX: M54.41 Lumbago with sciatica, right side (principal); G89.29 Other chronic pain; F17.210 Nicotine dependence, cigarettes, uncomplicated
CPT/HCPCS: 96372; 99284; A9270; J1170; J1885

== ENCOUNTER 2019-10-29 19:44 | Emergency (ER) | payer BC ==
[2019-10-29 20:08] VITALS: BP 138/85; PULSE 100
== END 2019-10-29 22:02 ==
LOC: JD.ED 19:44
DX: Z53.21 Procedure and treatment not carried out due to patient leaving prior to being seen by health care provider (principal)

== ENCOUNTER 2019-10-31 19:17 | Emergency (ER) | payer BC, OTHER, SELFPAY ==
[2019-10-31 19:26] VITALS: BP 122/64; PULSE 95
--- NOTE | 2019-10-31 20:15 | EDM.PDOC ---
ED HPI GENERAL MEDICAL PROBLEM - General Chief Complaint: Cardiovascular Problem Stated Complaint: [facility] Time Seen by Provider: 10/31/19 19:31 Source of Information: Reports: Patient History Limitations: Reports: No Limitations - History of Present Illness INITIAL COMMENTS - FREE TEXT/NARRATIVE: Ms. Ramachandran is a very pleasant 24-year-old woman with a past medical history significant for laparoscopy-confirmed polycystic ovarian syndrome, chronic back pain, depression, PTSD, and OSD, who states that she has experienced rapid palpitations with extra beats since she was 15 years old. A prior Holter monitor evaluation was negative. She has been experiencing the same palpitations , along with occasional syncopal episodes, since this past 10/28/2019. She saw her PCP yesterday. Blood work was obtained, although the patient does not know specifically what tests or what the results were, other than a test apparently showed "increased inflammation". A Holter monitor was placed, which the patient is still wearing. The patient now presents to the ED because she fainted around 15:00, while at work, then several times after she got home from work. Her most recent episode was around 19:00, before she arrived to the ED, and she has not suffered any palpitations or syncopal episodes while here in the ED. The patient denies recent illness such as fever, chills, cough, dyspnea, chest pain, nausea, vomiting, constipation, diarrhea, abdominal pain, urinary symptoms , recent weight gain or weight loss, recent bloody bowel movements or black bowel movements, recent joint aches, headaches, or rashes. The patient's PCP is Cherie Peter NP. Her Online Communications Manager is Dr. Zhane Mcgrath. Her Petrographer is Dr. Mark Schwartz. She does not recall the name of her [place] Psychiatrist. - Related Data Allergies Allergy/AdvReac Type Severity Reaction Status Date / Time grass pollen Allergy Rash Verified 10/31/19 19:25 latex Allergy Rash Verified 10/31/19 19:25 lavender (Lavandula Allergy Rash Verified 10/31/19 19:25 angustifolia) Fake Metals Allergy Rash Uncoded 10/31/19 19:25 Home Meds: Home Meds hydrOXYzine HCL [Atarax] 10 mg PO BEDTIME PRN 04/13/19 [History] Sertraline [Zoloft] 100 mg PO BEDTIME 10/29/19 [History] Hydrocodone/Acetaminophen [Hydrocodon-Acetaminophen 5-325] 1 tab PO Q6H PRN 02/12 [History] Orphenadrine [Norflex] 100 mg PO TID PRN 10/31/19 [History] Past Medical History HEENT History: Reports: Impaired Vision [employer]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: Polycystic Ovaries Musculoskeletal History: Reports: Back Pain, Chronic, Other (See Below) ( Untreated bilateral carpal tunnel syndrome) Psychiatric History: Reports: Depression, OCD, PTSD, Suicidal Ideation Endocrine/Metabolic History: Reports: Obesity/BMI 30+, Other (See Below) ( Prediabetes) Dermatologic History: Reports: Eczema - Past Surgical History HEENT Surgical History: Reports: Oral Surgery (wisdom teeth extraction) Other HEENT Surgeries/Procedures: wisdom teeth removed GI Surgical History: Reports: Cholecystectomy (2009), Colonoscopy Female Surgical History: Reports: Other (See Below) (Exploratory laparoscopy for PCOS Apr 2013) Social & Family History - Family History Family Medical History: Noncontributory Cardiac: Reports: CAD Musculoskeletal: Reports: Arthritis Hematologic: Reports: Other (See Below) Other Hematologic Family History: sister from rare blood disorder - Tobacco Use Smoking Status *Q: Current Every Day Smoker Years of Tobacco use: 1 Packs/Tins Daily: 0.5 Packs/Tins Daily Comment: Down from >1 ppd - Caffeine Use Caffeine Use: Reports: Coffee, Soda - Alcohol Use Alcohol Use History: Yes Alcohol Use Frequency: Socially - Recreational Drug Use Recreational Drug Use: No - Living Situation & Occupation Living situation: Reports: , Other (with roomates) 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 Musculoskeletal: Reports: Back Pain (chronic) ED EXAM, GENERAL - Physical Exam Exam: See Below Exam Limited By: No Limitations General Appearance: Alert, WD/WN, No Apparent Distress Eye Exam: Bilateral Eye: EOMI, Normal Inspection Ears: Normal External Exam, Hearing Grossly Normal Nose: Normal Inspection Throat/Mouth: Normal Inspection, Normal Lips, Normal Voice, No Airway Compromise Head: Atraumatic, Normocephalic Neck: Normal Inspection, Full Range of Motion Respiratory/Chest: No Respiratory Distress, Lungs Clear, Normal Breath Sounds, No Accessory Muscle Use Cardiovascular: Normal Peripheral Pulses, Regular Rate, Rhythm, No Edema, No Gallop, No JVD, No Murmur, No Rub Peripheral Pulses: 4+: Radial (L), Radial (R) GI/Abdominal: Normal Bowel Sounds, Soft, Non-Tender, No Organomegaly, No Distention, No Abnormal Bruit, No Mass (Female) Exam: Deferred Rectal (Female) Exam: Deferred Back Exam: Normal Inspection, Full Range of Motion, NT Extremities: Normal Inspection, Normal Range of Motion, No Pedal Edema, Normal Capillary Refill Neurological: Alert, Oriented, Normal Cognition, No Motor/Sensory Deficits Psychiatric: Normal Affect Skin Exam: Warm, Dry, Intact, Normal Color, No Rash EKG INTERPRETATION EKG Date: 10/31/19 Time: 20:32 Rhythm: NSR (Sinus arrhythmia) Rate (Beats/Min): 79 Alexander: Normal P-Wave: Present QRS: Normal ST-T: Normal QT: Normal Comparison: No Change (09/17/2018) Course - Vital Signs Last Recorded V/S: Last Vital Signs Temp 36.4 C 10/31/19 19:21 Pulse 95 10/31/19 19:21 Resp 20 10/31/19 19:21 BP 122/64 10/31/19 19:21 Pulse Ox 99 10/31/19 19:21 Orthostatic Blood Pressure [ 113/71 Standing] Orthostatic Blood Pressure [ 112/71 Sitting] Orthostatic Blood Pressure [ 104/63 Supine] - Orders/Labs/Meds Orders: Active Orders 24 hr Category Date Time Status EKG Documentation Completion [RC] STAT Care 10/31/19 20:03 Active Orthostatic Vital Signs [RC] STAT Care 10/31/19 20:03 Active Labs: Laboratory Tests 10/31/19 10/31/19 Range/Units 20:32 20:32 WBC 9.89 (3.98-10.04) K/mm3 RBC 4.42 (3.98-5.22) M/mm3 Hgb 13.8 (11.2-15.7) gm/dl Hct 41.9 (34.1-44.9) % MCV 94.8 (79.4-94.8) fl MCH 31.2 (25.6-32.2) pg MCHC 32.9 (32.2-35.5) g/dl RDW Std Deviation 42.5 (36.4-46.3) fL Plt Count 359 (182-369) K/mm3 MPV 8.9 L (9.4-12.3) fl Neutrophils % (Manual) 61 H (40-60) % Band Neutrophils % 0 (0-10) % Lymphocytes % (Manual) 35 (20-40) % Atypical Lymphs % 0 % Monocytes % (Manual) 4 (2-10) % Eosinophils % (Manual) 0 L (0.7-5.8) % Basophils % (Manual) 0 L (0.1-1.2) Platelet Estimate Adequate RBC Morph Comment Normal Sodium 138 (136-145) mEq/L Potassium 4.4 (3.5-5.1) mEq/L Chloride 103 (98-107) mEq/L Carbon Dioxide 27 (21-32) mEq/L Anion Gap 12.4 (5-15) BUN 6 L (7-18) mg/dL Creatinine 0.7 (0.55-1.02) mg/dL Est Cr Clr Drug Dosing 118.01 mL/min Estimated GFR (MDRD) > 60 (>60) mL/min BUN/Creatinine Ratio 8.6 L (14-18) Glucose 101 (74-106) mg/dL Calcium 9.5 (8.5-10.1) mg/dL Magnesium 2.1 (1.8-2.4) mg/dl Total Bilirubin 0.2 (0.2-1.0) mg/dL AST 12 L (15-37) U/L ALT 25 (14-59) U/L Alkaline Phosphatase 96 (46-116) U/L Total Protein 7.7 (6.4-8.2) g/dl Albumin 3.7 (3.4-5.0) g/dl Globulin 4.0 gm/dL Albumin/Globulin Ratio 0.9 L (1-2) - Re-Assessments/Exams Free Text/Narrative Re-Assessment/Exam: 10/31/19 20:06 The patient states that she has not had any palpitations or syncopal episodes since around 19:00 this evening - none while here in the ED. A Holter monitor was applied yesterday, however, we do not have access to that data, which should definitively determine what dysrhythmias, if any, the patient is suffering from, since she has been symptomatic several times since it was applied. For today's purposes, I will order an ECG, primarily to make sure that her QTc is not significantly prolonged, as well as some blood work to make sure that she does not have any significant electrolyte abnormalities that require correction. I am aware that the patient's PCP obtained blood work yesterday, however, the patient does not know what those tests were, and neither she nor I have access to the results. Additionally, I will order orthostatics to make sure that hypotension is not the cause of her syncopal episodes. 10/31/19 21:09 The patient's ECG demonstrates a sinus arrhythmia, but no abnormal ventricular rhythm. Her QTc is 437 ms. Her CBC is unremarkable. Her CMP is unremarkable. Her magnesium level is within normal limits at 2.1. 10/31/19 21:16 The patient is not orthostatic. 10/31/19 21:18 Test results discussed with the patient and her boyfriend (now present). Today' s workup is unremarkable. She is not anemic. There are no significant electrolyte abnormalities, including magnesium, and her QTc is not prolonged. She has not been symptomatic the entire time that she has been here in the ED. The entire diagnosis of what is going on rests with the Holter monitor interpretation. I will discharge her home. Departure - Departure Time of Disposition: 21:23 Disposition: Home, Self-Care 01 Condition: Good Clinical Impression: Palpitations, Syncope Instructions: Palpitations, [id number], Syncope, [id number] Referrals: Cherie Peter NP [Primary Care Provider] - Zhane Mcgrath MD [Physician] - Mark Schwartz DO [Ordering Only Provider] - Forms: ED Department Discharge Additional Instructions: You were seen in the emergency room for 3 days of frequent rapid heartbeat with extra beats, and fainting. Workup in the ER included blood work, positional blood pressure checks, and an ECG, all of which were normal. You are not anemic. No electrolyte abnormalities , including magnesium, were found. Your blood pressure actually nia between lying and standing, and her ECG found no arrhythmias, and your QTc was normal at 437 ms. No dysrhythmias were found on telemetry during your ER visit. The diagnosis of what is happening rests on the results of your Holter monitor. If any other problems, please do not hesitate to return to the ER. Sepsis Event Note - Evaluation Sepsis Screening Result: No Definite Risk - Focused Exam Vital Signs: Vital Signs Temp Pulse Resp BP Pulse Ox 10/31/19 19:21 36.4 C 95 20 122/64 99 Date Exam was Performed: 10/31/19 Time Exam was Performed: 22:24 - My Orders Last 24 Hours: My Active Orders 10/31/19 20:03 EKG Documentation Completion [RC] STAT Orthostatic Vital Signs [RC] STAT - Assessment/Plan Last 24 Hours: My Active Orders 10/31/19 20:03 EKG Documentation Completion [RC] STAT Orthostatic Vital Signs [RC] STAT
== END 2019-10-31 21:49 | disposition home or self-care (01) ==
LOC: JD.ED 19:17
DX: R55 Syncope and collapse (principal); R00.2 Palpitations; F32.9 Major depressive disorder, single episode, unspecified; F17.210 Nicotine dependence, cigarettes, uncomplicated; Z91.048 Other nonmedicinal substance allergy status; Z91.040 Latex allergy status; Z79.899 Other long term (current) drug therapy
CPT/HCPCS: 36415; 80053; 83735; 85007; 85027; 93005; 93010; 99283; 99285-25

== ENCOUNTER 2020-03-17 15:30 | Emergency (ER) | payer BC, SELFPAY ==
[2020-03-17] MEDS ORDERED: Ondansetron 4 MG/2 ML SDV IVPUSH ONE (15:59)
[2020-03-17] MEDS ORDERED: HYDROmorphone 1 MG/ML Syringe IVPUSH STA (15:59)
[2020-03-17] MEDS ORDERED: Sodium Chloride 0.9% 1,000 ML IV SCH (16:00)
[2020-03-17] MEDS ORDERED: Sodium Chloride 0.9% 10 ML Syringe FLUSH PRN (16:01)
--- NOTE | 2020-03-17 16:07 | EDM.PDOC ---
ED HPI GENERAL MEDICAL PROBLEM - General Chief Complaint: Genitourinary Problem Stated Complaint: FLANK PAIN Time Seen by Provider: 03/17/20 15:48 Source of Information: Reports: Patient, RN Notes Reviewed History Limitations: Reports: No Limitations - History of Present Illness INITIAL COMMENTS - FREE TEXT/NARRATIVE: Patient is a 25-year-old female who presents to the ED for evaluation of right- sided flank pain. Patient notes that this pain was present at around 4 AM on Tuesday morning, she states that she was awakened with this pain. She notes that she then developed burning and pain with urination, now she states that the pain has moved from her flank, into her right lower quadrant/groin area. Patient does have nausea and vomiting today, she did take some Motrin for the pain but this does not seem to be helping much at all. She does also have a history of polycystic ovary syndrome. Patient states she is on control, but denies at today's visit. She states that she had a fever on Tuesday but has not had a fever since then, is complaining of chills, urinary frequency and urgency, dysuria. She is not complaining of any shortness of breath, chest pain or cough, or any other sick-like symptoms. Patient states she has had her gallbladder removed, but still retains her appendix. Right Flank Pain Score (Numeric/FACES): 8 - Related Data Allergies Allergy/AdvReac Type Severity Reaction Status Date / Time grass pollen Allergy Severe Rash Verified 03/17/20 15:40 latex Allergy Severe Rash Verified 03/17/20 15:40 lavender (Lavandula Allergy Severe Rash Verified 03/17/20 15:40 angustifolia) Fake Metals Allergy Severe Rash Uncoded 03/17/20 15:40 Home Meds: Home Meds hydrOXYzine HCL [Atarax] 10 mg PO BEDTIME PRN 04/13/19 [History] Sertraline [Zoloft] 100 mg PO BEDTIME 10/29/19 [History] Orphenadrine [Norflex] 100 mg PO TID PRN 10/31/19 [History] cephALEXin [Cephalexin] 500 mg PO BID #10 capsule 03/17/20 [Rx] Past Medical History HEENT History: Reports: Impaired Vision Cardiovascular History: Reports: Arrhythmia Other Cardiovascular History: Hx of SVT at age 15 was evaluated by setter helper about one year ago, placed on holter no events noted. Gastrointestinal History: Reports: Cholelithiasis Genitourinary History: Reports: Other (See Below) Other Genitourinary History: states today has urgency but unable to void today. Pt states has had kidneys looked at in past and they are ok. SCRUMMASTER History: Reports: Polycystic Ovaries Other SCRUMMASTER History: PCOS Musculoskeletal History: Reports: Back Pain, Chronic, Other (See Below) Other Musculoskeletal History: carpal tunnel in both wrist Neurological History: Reports: Headaches, Chronic, Migraines, Seizure Other Neuro History: seizure from choking episode Psychiatric History: Reports: Depression, OCD, PTSD, Suicidal Ideation Endocrine/Metabolic History: Reports: Obesity/BMI 30+, Other (See Below) Other Endocrine/Metabolic History: prediabetic Hematologic History: Reports: None Immunologic History: Reports: None Oncologic (Cancer) History: Reports: None Dermatologic History: Reports: Eczema Other Dermatologic History: heat rash on arms - Infectious Disease History Infectious Disease History: Reports: None - Past Surgical History HEENT Surgical History: Reports: Oral Surgery Other HEENT Surgeries/Procedures: wisdom teeth removed GI Surgical History: Reports: Cholecystectomy, Colonoscopy Social & Family History - Family History Family Medical History: Noncontributory Cardiac: Reports: CAD Musculoskeletal: Reports: Arthritis Hematologic: Reports: Other (See Below) Other Hematologic Family History: sister from rare blood disorder - Tobacco Use Smoking Status *Q: Current Every Day Smoker Years of Tobacco use: 1 Packs/Tins Daily: 0.5 - Caffeine Use Caffeine Use: Reports: Coffee, Soda, Tea - Recreational Drug Use Recreational Drug Use: No - Living Situation & Occupation Living situation: Reports: , Other (with roomates) 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 ED EXAM, RENAL/ - Physical Exam Exam: See Below Exam Limited By: No Limitations General Appearance: Alert, WD/WN, No Apparent Distress Respiratory/Chest: No Respiratory Distress, Lungs Clear, Normal Breath Sounds, No Accessory Muscle Use, Chest Non-Tender Cardiovascular: Normal Peripheral Pulses, Regular Rate, Rhythm, No Murmur GI/Abdominal: Normal Bowel Sounds, Soft, No Distention, No Mass, Tender (RLQ mainly with direct palpation, McBurney point is positive) Extremities: Normal Inspection, Normal Capillary Refill Neurological: Alert, Oriented, Normal Cognition, No Motor/Sensory Deficits Psychiatric: Normal Affect, Normal Mood Skin Exam: Warm, Dry, Intact, Normal Color, No Rash Course - Vital Signs Last Recorded V/S: Last Vital Signs Temp 98.4 F 03/17/20 15:45 Pulse 101 H 03/17/20 16:25 Resp 18 03/17/20 16:25 BP 117/78 03/17/20 16:25 Pulse Ox 96 03/17/20 16:25 - Orders/Labs/Meds Orders: Active Orders 24 hr Category Date Time Status Peripheral IV Care [RC] . DIRECTED Care 03/17/20 16:01 Ordered Sodium Chloride 0.9% [Normal Saline] 1,000 ml Med 03/17/20 16:00 Ordered IV ASDIRECTED Sodium Chloride 0.9% [Saline Flush] Med 03/17/20 16:01 Ordered 10 ml FLUSH ASDIRECTED PRN Peripheral IV Insertion Adult [OM.PC] Stat Oth 03/17/20 16:01 Ordered Medication Orders Sodium Chloride (Normal Saline) 1,000 mls @ 999 mls/hr IV ASDIRECTED CHRISTIANO Last Admin: 03/17/20 16:16 Dose: 999 mls/hr Documented by: MARYAN Sodium Chloride (Saline Flush) 10 ml FLUSH ASDIRECTED PRN PRN Reason: Keep Vein Open Last Admin: 03/17/20 16:24 Dose: 10 ml Documented by: MARYAN Labs: Laboratory Tests 03/17/20 03/17/20 03/17/20 Range/Units 15:53 15:55 16:20 WBC 10.24 H (3.98-10.04) K/mm3 RBC 4.29 (3.98-5.22) M/mm3 Hgb 13.5 (11.2-15.7) gm/dl Hct 40.1 (34.1-44.9) % MCV 93.5 (79.4-94.8) fl MCH 31.5 (25.6-32.2) pg MCHC 33.7 (32.2-35.5) g/dl RDW Std Deviation 42.1 (36.4-46.3) fL Plt Count 393 H (182-369) K/mm3 MPV 8.9 L (9.4-12.3) fl Neutrophils % (Manual) 75 H (40-60) % Band Neutrophils % 0 (0-10) % Lymphocytes % (Manual) 19 L (20-40) % Atypical Lymphs % 0 % Monocytes % (Manual) 6 (2-10) % Eosinophils % (Manual) 0 L (0.7-5.8) % Basophils % (Manual) 0 L (0.1-1.2) Platelet Estimate Adequate RBC Morph Comment Normal Sodium (136-145) mEq/L Potassium (3.5-5.1) mEq/L Chloride (98-107) mEq/L Carbon Dioxide (21-32) mEq/L Anion Gap (5-15) BUN (7-18) mg/dL Creatinine (0.55-1.02) mg/dL Est Cr Clr Drug Dosing mL/min Estimated GFR (MDRD) (>60) mL/min BUN/Creatinine Ratio (14-18) Glucose (74-106) mg/dL Calcium (8.5-10.1) mg/dL Total Bilirubin (0.2-1.0) mg/dL AST (15-37) U/L ALT (14-59) U/L Alkaline Phosphatase (46-116) U/L C-Reactive Protein (<1.0) mg/dL Total Protein (6.4-8.2) g/dl Albumin (3.4-5.0) g/dl Globulin gm/dL Albumin/Globulin Ratio (1-2) Urine Color Yellow (Yellow) Urine Appearance Clear (Clear) Urine pH 6.5 (5.0-8.0) Ur Specific [place] > or = 1.030 (1.005-1.030) Urine Protein Negative (Negative) Urine Glucose (UA) Negative (Negative) Urine Ketones Negative (Negative) Urine Occult Blood Negative (Negative) Urine Nitrite Negative (Negative) Urine Bilirubin Negative (Negative) Urine Urobilinogen 0.2 (0.2-1.0) Ur Leukocyte Esterase Negative (Negative) Urine RBC 0-5 (0-5) /hpf Urine WBC Not seen (0-5) /hpf Ur Squamous Epith Cells 0-5 (0-5) /hpf Amorphous Sediment Moderate H (NOT SEEN) /hpf Urine Bacteria Few (FEW) /hpf Urine Mucus Rare (FEW) /hpf Urine HCG, Qual Negative (NEGATIVE) 03/17/20 Range/Units 16:20 WBC (3.98-10.04) K/mm3 RBC (3.98-5.22) M/mm3 Hgb (11.2-15.7) gm/dl Hct (34.1-44.9) % MCV (79.4-94.8) fl MCH (25.6-32.2) pg MCHC (32.2-35.5) g/dl RDW Std Deviation (36.4-46.3) fL Plt Count (182-369) K/mm3 MPV (9.4-12.3) fl Neutrophils % (Manual) (40-60) % Band Neutrophils % (0-10) % Lymphocytes % (Manual) (20-40) % Atypical Lymphs % % Monocytes % (Manual) (2-10) % Eosinophils % (Manual) (0.7-5.8) % Basophils % (Manual) (0.1-1.2) Platelet Estimate RBC Morph Comment Sodium 140 (136-145) mEq/L Potassium 3.7 (3.5-5.1) mEq/L Chloride 104 (98-107) mEq/L Carbon Dioxide 23 (21-32) mEq/L Anion Gap 16.7 H (5-15) BUN 6 L (7-18) mg/dL Creatinine 0.8 (0.55-1.02) mg/dL Est Cr Clr Drug Dosing 98.41 mL/min Estimated GFR (MDRD) > 60 (>60) mL/min BUN/Creatinine Ratio 7.5 L (14-18) Glucose 122 H (74-106) mg/dL Calcium 9.0 (8.5-10.1) mg/dL Total Bilirubin 0.2 (0.2-1.0) mg/dL AST 11 L (15-37) U/L ALT 16 (14-59) U/L Alkaline Phosphatase 64 (46-116) U/L C-Reactive Protein 0.7 (<1.0) mg/dL Total Protein 7.1 (6.4-8.2) g/dl Albumin 3.2 L (3.4-5.0) g/dl Globulin 3.9 gm/dL Albumin/Globulin Ratio 0.8 L (1-2) Urine Color (Yellow) Urine Appearance (Clear) Urine pH (5.0-8.0) Ur Specific [place] (1.005-1.030) Urine Protein (Negative) Urine Glucose (UA) (Negative) Urine Ketones (Negative) Urine Occult Blood (Negative) Urine Nitrite (Negative) Urine Bilirubin (Negative) Urine Urobilinogen (0.2-1.0) Ur Leukocyte Esterase (Negative) Urine RBC (0-5) /hpf Urine WBC (0-5) /hpf Ur Squamous Epith Cells (0-5) /hpf Amorphous Sediment (NOT SEEN) /hpf Urine Bacteria (FEW) /hpf Urine Mucus (FEW) /hpf Urine HCG, Qual (NEGATIVE) Meds: Medications Generic Name Dose Route Start Last Admin Trade Name Freq PRN Reason Stop Dose Admin Sodium Chloride 1,000 mls @ 999 mls/hr 03/17/20 16:00 03/17/20 16:16 Normal Saline IV 999 mls/hr ASDIRECTED CHRISTIANO Administration Sodium Chloride 10 ml 03/17/20 16:01 03/17/20 16:24 Saline Flush FLUSH 10 ml ASDIRECTED PRN Administration Keep Vein Open Discontinued Medications Generic Name Dose Route Start Last Admin Trade Name Freq PRN Reason Stop Dose Admin Hydromorphone HCl 1 mg 03/17/20 15:59 03/17/20 16:15 Dilaudid IVPUSH 03/17/20 16:00 1 mg ONETIME STA Administration Magnesium Citrate 296 ml 03/17/20 17:52 Citrate Of Magnesia PO 03/17/20 17:53 ONETIME ONE Ondansetron HCl 4 mg 03/17/20 15:59 03/17/20 16:15 Zofran IVPUSH 03/17/20 16:00 4 mg ONETIME ONE Administration - Re-Assessments/Exams Free Text/Narrative Re-Assessment/Exam: 03/17/20 16:08 Patient presents to the ED for evaluation of her right-sided flank pain. Suspicious for kidney stone versus pyelonephritis time of triage, will run an hCG to rule out , but she will likely get a abdomen pelvis without contrast, in nature. Patient was a able to give some urine at also some basic labs, she will get some IV fluids, IV Dilaudid and IV Zofran for management. 03/17/20 17:47 Patient's laboratory evaluation has returned, white blood cell count is slightly elevated at 10.25, 75% neutrophils no bands, metabolic panel has no worrisome abnormalities. Urinalysis shows no sign of acute infective process. Abdomen pelvis CT demonstrates no renal calculi, ureteral dilatation or ureteral stone seen. No inflammatory changes seen around the kidneys as well. There is some slightly prominent lymph nodes medial to the left kidney which are stable from the previous exam, and therefore are felt to represent old inflammatory enlargement. Otherwise no acute abnormalities appreciated on the noncontrast CT of the abdomen pelvis. CT did demonstrate that she had quite a bit of stool throughout her colon, this should not be causing dysuria, I will question the patient regarding her sexual activity and see if she would like STD testing, or would like to follow-up with a different clinic at this time. Low suspicion for any sort of STD. She could have a urethritis, that is just not a full-blown cystitis at this time urinalysis demonstrated some amorphous sediment, with few bacteria but no white blood cells or red blood cells. Departure - Departure Time of Disposition: 17:50 Disposition: Home, Self-Care 01 Condition: Good Clinical Impression: Urethritis Constipation Qualifiers: Constipation type: unspecified constipation type Qualified Code(s): K59.00 - Constipation, unspecified - Discharge Information *PRESCRIPTION DRUG MONITORING PROGRAM REVIEWED*: No *COPY OF PRESCRIPTION DRUG MONITORING REPORT IN PATIENT SHARA: No Prescriptions: cephALEXin [Cephalexin] 500 mg PO BID #10 capsule Instructions: Constipation, Adult, [id number], Urinary Tract Infection, Adult, [id number] Referrals: Cherie Peter NP [Primary Care Provider] - Forms: ED Department Discharge Additional Instructions: You have been evaluated in the ED for your urinary symptoms. Your urinalysis was consistent with urethritis. Other laboratory evaluation was within normal limits, you do not have a bacterial infection in your kidneys, your appendix was also seen on the CT and within normal limits. You may take AZO for urinary pain relief. This is available over the counter, and can be attained at any retail store like [employer] or any pharmacy. Please be aware that this medication will make your urine turn orange. You have been given a prescription for Cephalexin, 500 mg 1 tablet 2 times a day for 5 days. This has been electronically sent to the Your abdomen pelvis CT also demonstrated he had quite a bit of stool throughout your colon, you will be given a bottle of magnesium citrate, please take one half bottle, if you do not have a rather large bowel movement in the next few hours, please continue with the last half bottle. Please increase your oral fluid intake and try to stay adequately hydrated. Recommend the start of medication for stool softening like MiraLAX on a daily basis to help promote good bowel health. Recommend you stick to a clear liquid diet for the next 24 to 48 hours and advance to bland as tolerated. Please return to the ED if your symptoms change or worsen. Sepsis Event Note (ED) - Evaluation Sepsis Screening Result: No Definite Risk - Focused Exam Vital Signs: Vital Signs Temp Pulse Resp BP Pulse Ox 03/17/20 16:25 101 H 18 117/78 96 03/17/20 15:45 98.4 F 105 H 20 126/80 99 - My Orders Last 24 Hours: My Active Orders 03/17/20 16:00 Sodium Chloride 0.9% [Normal Saline] 1,000 ml IV ASDIRECTED 03/17/20 16:01 Peripheral IV Care [RC] . DIRECTED Sodium Chloride 0.9% [Saline Flush] 10 ml FLUSH ASDIRECTED PRN Peripheral IV Insertion Adult [OM.PC] Stat - Assessment/Plan Last 24 Hours: My Active Orders 03/17/20 16:00 Sodium Chloride 0.9% [Normal Saline] 1,000 ml IV ASDIRECTED 03/17/20 16:01 Peripheral IV Care [RC] . DIRECTED Sodium Chloride 0.9% [Saline Flush] 10 ml FLUSH ASDIRECTED PRN Peripheral IV Insertion Adult [OM.PC] Stat
--- NOTE | 2020-03-17 17:23 | CT ---
CT abdomen and pelvis Technique: Multiple axial sections were obtained from above the dome of the diaphragm inferiorly through the pubic symphysis. Intravenous and oral contrast not utilized. He study has been performed as a ureteral stone protocol. Findings: Kidneys show no abnormal calcifications. No hydronephrosis is seen. No inflammatory change is appreciated around either kidney. No ureteral calculi are seen. No bladder calculi are noted. Other findings: Visualized lung bases show nothing acute. Liver contains no focal parenchymal abnormality. Surgical clips are seen from prior cholecystectomy. Pancreas shows no discrete abnormality. Aorta shows no aneurysm. Several slightly prominent lymph nodes are seen medial to the left kidney with largest measuring 1.6 cm. These are stable from prior exam and therefore likely relate to old inflammatory process. No retroperitoneal adenopathy is seen. Appendix is seen which is normal. No pelvic mass or adenopathy is seen. No free fluid or inflammatory change is appreciated. Bone window settings were reviewed which appear within normal limits for the patient's age. Impression: 1. No renal calculi, ureteral dilatation or ureteral stone is seen. No inflammatory change is seen around the kidneys. 2. Slightly prominent lymph nodes medial to the left kidney which are stable from previous exam and therefore are felt to represent old inflammatory enlargement. 3. Nothing acute is appreciated on noncontrast CT study of the abdomen and pelvis. Diagnostic code #3 This report was dictated in MDT
[2020-03-17] MEDS ORDERED: Magnesium Citrate Solution 296 ML Bottle PO ONE (17:52)
[2020-03-17 18:20] VITALS: BP 111/75; PULSE 89
== END 2020-03-17 18:32 | disposition home or self-care (01) ==
LOC: JD.ED 15:30
DX: K59.00 Constipation, unspecified (principal); F17.210 Nicotine dependence, cigarettes, uncomplicated; F32.9 Major depressive disorder, single episode, unspecified; E66.9 Obesity, unspecified; Z68.41 Body mass index [BMI] 40.0-44.9, adult; Z91.09 Other allergy status, other than to drugs and biological substances; Z91.040 Latex allergy status; Z79.899 Other long term (current) drug therapy
CPT/HCPCS: 36415; 74176; 80053; 81001; 81025; 85007; 85027; 86140; 96361; 96374; 96375; 99284; A9270; J1170; J2405; J7030; 99283

== ENCOUNTER 2020-03-20 11:09 | Emergency (ER) | payer BC, OTHER, SELFPAY ==
[2020-03-20 11:23] VITALS: BP 125/78; PULSE 90
[2020-03-20] MEDS ORDERED: Sodium Chloride 0.9% 10 ML Syringe FLUSH PRN (11:54)
[2020-03-20] MEDS ORDERED: Metoclopramide 10 MG/2 ML SDV IVPUSH ONE (11:55)
[2020-03-20] MEDS ORDERED: Alum Hydrox/Mag Hydrox/Simeth 30 ML, Lidocaine 2% 15 ML PO ONE ×2 (11:55)
[2020-03-20] MEDS ORDERED: Sodium Chloride 0.9% 1,000 ML IV ONE (11:55)
[2020-03-20] MEDS ORDERED: HYDROmorphone 1 MG/ML Syringe IVPUSH ONE (11:56)
--- NOTE | 2020-03-20 12:02 | EDM.PDOC ---
ED HPI GENERAL MEDICAL PROBLEM - General Chief Complaint: Abdominal Pain Stated Complaint: ABDOMINAL PAIN NOT BETTER Time Seen by Provider: 03/20/20 11:44 Source of Information: Reports: Patient, RN Notes Reviewed History Limitations: Reports: No Limitations - History of Present Illness INITIAL COMMENTS - FREE TEXT/NARRATIVE: Patient is a 25-year-old female who presents to the ED for evaluation of ongoing abdominal pain. Patient was evaluated by myself in this ER last Tuesday, had an essentially normal work-up, white blood cell count was mildly elevated, and her CT showed that she had quite a bit of stool in her colon. She was sent home with magnesium citrate, and Keflex for suspected urethritis. Patient states that she has been taking her antibiotics as prescribed and did take the mag citrate but only had just a few small BMs, she is complaining of abdominal bloating, ongoing pain that comes in waves, she states it is mostly crampy been stabbing when it is at its worse. She notes that the pain has traveled from her right lower quadrant/right flank area to the mid abdomen. She states that she has not had any documented fevers at home, but she has had hot flashes and chills, she is not really been sleeping well due to the pain she is feeling nauseous and therefore she cannot keep food or fluids down. Patient states when the pain is at its worst, does take her breath away. She is not tried any different laxative suppositories or stool softeners at home. She did notice some dark red blood in the stool today, but this was only a little bit. Middle Abdomen Pain Score (Numeric/FACES): 5 - Related Data Allergies Allergy/AdvReac Type Severity Reaction Status Date / Time grass pollen Allergy Severe Rash Verified 03/20/20 11:23 latex Allergy Severe Rash Verified 03/20/20 11:23 lavender (Lavandula Allergy Severe Rash Verified 03/20/20 11:23 angustifolia) Fake Metals Allergy Severe Rash Uncoded 03/20/20 11:23 Home Meds: Home Meds hydrOXYzine HCL [Atarax] 10 mg PO BEDTIME PRN 04/13/19 [History] Sertraline [Zoloft] 100 mg PO BEDTIME 10/29/19 [History] Orphenadrine [Norflex] 100 mg PO TID PRN 02/05/20 [History] cephALEXin [Cephalexin] 500 mg PO BID #10 capsule 03/17/20 [Rx] Dicyclomine [Bentyl] 20 mg PO TID #21 tab 03/20/20 [Rx] Metoclopramide HCl [Reglan] 10 mg PO QID #20 tablet 03/20/20 [Rx] Metoprolol Tartrate 0 mg PO DAILY 03/20/20 [History] predniSONE 20 mg PO ASDIRECTED #15 tab 03/20/20 [Rx] Past Medical History HEENT History: Reports: Impaired Vision Cardiovascular History: Reports: Arrhythmia Other Cardiovascular History: Hx of SVT at age 15 was evaluated by hogshead filler about one year ago, placed on holter no events noted. Gastrointestinal History: Reports: Cholelithiasis Genitourinary History: Reports: Other (See Below) Other Genitourinary History: Pt states has had kidneys looked at in past and they are ok. [employer] History: Reports: Polycystic Ovaries Other [employer] History: PCOS Musculoskeletal History: Reports: Back Pain, Chronic, Other (See Below) Other Musculoskeletal History: carpal tunnel in both wrist Neurological History: Reports: Headaches, Chronic, Migraines, Seizure Other Neuro History: seizure from choking episode Psychiatric History: Reports: Depression, OCD, PTSD, Suicidal Ideation Endocrine/Metabolic History: Reports: Obesity/BMI 30+, Other (See Below) Other Endocrine/Metabolic History: prediabetic Dermatologic History: Reports: Eczema Other Dermatologic History: heat rash on arms - Past Surgical History HEENT Surgical History: Reports: Oral Surgery Other HEENT Surgeries/Procedures: wisdom teeth removed GI Surgical History: Reports: Cholecystectomy, Colonoscopy Social & Family History - Family History Family Medical History: Noncontributory Cardiac: Reports: CAD Musculoskeletal: Reports: Arthritis Hematologic: Reports: Other (See Below) Other Hematologic Family History: sister from rare blood disorder - Tobacco Use Smoking Status *Q: Current Every Day Smoker Years of Tobacco use: 1 Packs/Tins Daily: 0.5 - Caffeine Use Caffeine Use: Reports: Coffee, Soda - Recreational Drug Use Recreational Drug Use: No - Living Situation & Occupation Living situation: Reports: , Other (with roomates) 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 Denies: Fever Respiratory: Reports: Shortness of Breath (when she is having abdomen pain). Denies: Wheezing, Cough Cardiovascular: Denies: Chest Pain GI/Abdominal: Reports: Abdominal Pain (mid-upper abdomen pain), Bloody Stool (dark red blood in stool), Constipation, Decreased Appetite, Nausea, Vomiting. Denies: Diarrhea : Denies: Dysuria, Frequency, Urgency ED EXAM, GI/ABD - Physical Exam Exam: See Below Exam Limited By: No Limitations General Appearance: Alert, WD/WN, No Apparent Distress Eyes: Bilateral: Normal Appearance Respiratory/Chest: No Respiratory Distress, Lungs Clear, Normal Breath Sounds, No Accessory Muscle Use, Chest Non-Tender Cardiovascular: Normal Peripheral Pulses, Regular Rate, Rhythm, No Murmur GI/Abdominal Exam: Normal Bowel Sounds, Soft, No Distention, No Mass, Tender (mid-upper abdomen is tender with palpation) (Female) Exam: Deferred Extremities: Normal Inspection, Normal Capillary Refill Neurological: Alert, Oriented, Normal Cognition, No Motor/Sensory Deficits Psychiatric: Normal Affect, Normal Mood Skin Exam: Warm, Dry, Intact, Normal Color, No Rash Course - Vital Signs Last Recorded V/S: Last Vital Signs Temp 98 F 03/20/20 11:20 Pulse 90 03/20/20 11:20 Resp 16 03/20/20 11:20 BP 125/78 03/20/20 11:20 Pulse Ox 97 03/20/20 11:20 - Orders/Labs/Meds Orders: Active Orders 24 hr Category Date Time Status Peripheral IV Care [RC] . DIRECTED Care 03/20/20 11:55 Active Sodium Chloride 0.9% [Saline Flush] Med 03/20/20 11:54 Active 10 ml FLUSH ASDIRECTED PRN Peripheral IV Insertion Adult [OM.PC] Routine Oth 03/20/20 11:54 Ordered Medication Orders Sodium Chloride (Saline Flush) 10 ml FLUSH ASDIRECTED PRN PRN Reason: Keep Vein Open Last Admin: 03/20/20 12:16 Dose: 10 ml Documented by: MIMA Labs: Laboratory Tests 03/20/20 03/20/20 03/20/20 Range/Units 12:15 12:15 13:25 WBC 7.95 (3.98-10.04) K/mm3 RBC 4.48 (3.98-5.22) M/mm3 Hgb 14.0 (11.2-15.7) gm/dl Hct 41.8 (34.1-44.9) % MCV 93.3 (79.4-94.8) fl MCH 31.3 (25.6-32.2) pg MCHC 33.5 (32.2-35.5) g/dl RDW Std Deviation 42.3 (36.4-46.3) fL Plt Count 409 H (182-369) K/mm3 MPV 9.0 L (9.4-12.3) fl Neutrophils % (Manual) 47 (40-60) % Band Neutrophils % 0 (0-10) % Lymphocytes % (Manual) 46 H (20-40) % Atypical Lymphs % 0 % Monocytes % (Manual) 4 (2-10) % Eosinophils % (Manual) 3 (0.7-5.8) % Basophils % (Manual) 0 L (0.1-1.2) Toxic Granulation Platelet Estimate Increased Plt Morphology Comment Normal RBC Morph Comment Normal Sodium 139 (136-145) mEq/L Potassium 4.1 (3.5-5.1) mEq/L Chloride 104 (98-107) mEq/L Carbon Dioxide 23 (21-32) mEq/L Anion Gap 16.1 H (5-15) BUN 6 L (7-18) mg/dL Creatinine 0.6 (0.55-1.02) mg/dL Est Cr Clr Drug Dosing 131.22 mL/min Estimated GFR (MDRD) > 60 (>60) mL/min BUN/Creatinine Ratio 10.0 L (14-18) Glucose 87 (74-106) mg/dL Calcium 9.3 (8.5-10.1) mg/dL Total Bilirubin 0.3 (0.2-1.0) mg/dL AST 11 L (15-37) U/L ALT 12 L (14-59) U/L Alkaline Phosphatase 66 (46-116) U/L C-Reactive Protein 1.0 (<1.0) mg/dL Total Protein 7.4 (6.4-8.2) g/dl Albumin 3.3 L (3.4-5.0) g/dl Globulin 4.1 gm/dL Albumin/Globulin Ratio 0.8 L (1-2) Lipase 139 (73-393) U/L Urine Color Yellow (Yellow) Urine Appearance Clear (Clear) Urine pH 7.0 (5.0-8.0) Ur Specific Julian 1.020 (1.005-1.030) Urine Protein Negative (Negative) Urine Glucose (UA) Negative (Negative) Urine Ketones Negative (Negative) Urine Occult Blood Negative (Negative) Urine Nitrite Negative (Negative) Urine Bilirubin Negative (Negative) Urine Urobilinogen 0.2 (0.2-1.0) Ur Leukocyte Esterase Negative (Negative) Urine RBC Not seen (0-5) /hpf Urine WBC 0-5 (0-5) /hpf Ur Squamous Epith Cells 0-5 (0-5) /hpf Urine Bacteria Rare (FEW) /hpf Urine Mucus Not seen (FEW) /hpf Meds: Medications Generic Name Dose Route Start Last Admin Trade Name Rachelle PRN Reason Stop Dose Admin Sodium Chloride 10 ml 03/20/20 11:54 03/20/20 12:16 Saline Flush FLUSH 10 ml ASDIRECTED PRN Administration Keep Vein Open Discontinued Medications Generic Name Dose Route Start Last Admin Trade Name Frehardik PRN Reason Stop Dose Admin Al Hydroxide/Mg Hydroxide 30 0 ml 03/20/20 11:55 03/20/20 12:17 ml/ Lidocaine HCl 15 ml PO 03/20/20 11:56 45 ml ONETIME ONE Administration Dicyclomine HCl 20 mg 03/20/20 13:16 03/20/20 13:20 Bentyl PO 03/20/20 13:17 20 mg ONETIME ONE Administration Hydromorphone HCl 1 mg 03/20/20 11:56 03/20/20 12:16 Dilaudid IVPUSH 03/20/20 11:57 1 mg ONETIME ONE Administration Sodium Chloride 1,000 mls @ 999 mls/hr 03/20/20 11:55 03/20/20 12:15 Normal Saline IV 03/20/20 12:55 999 mls/hr ONETIME ONE Administration Metoclopramide HCl 10 mg 03/20/20 11:55 03/20/20 12:15 Reglan IVPUSH 03/20/20 11:56 10 mg ONETIME ONE Administration - Re-Assessments/Exams Free Text/Narrative Re-Assessment/Exam: 03/20/20 12:02 Patient presents to the ED for evaluation of her ongoing abdomen pain. Will repeat labs give her some IV fluids, 10 mg Reglan, 1 mg Dilaudid for pain management, do a flat and upright abdomen x-ray, she just did have a CT done a few days ago. With her history/symptoms today, is more suspicious for a possible diverticulitis, she states she feels full but cannot go, and having some mild bleeding with her stool. She could also have a combination of IBS, that she is not been known to have. 03/20/20 14:15 Patient white blood cell count is within normal limits patient is not anemic, metabolic panel is essentially unremarkable patient CRP is 1.0, lipase is 139. Patient states she did get a lot of relief from the Bentyl, her father states that he has a history of IBS. I do feel this is highly likely, as she states she was having some blood in her stool, and regularly from the Bentyl, we will give her some tablets of Bentyl and course of steroids with some Reglan. I did educate her on the side effects of Reglan and her psychiatric meds. Departure - Departure Time of Disposition: 14:20 Disposition: Home, Self-Care 01 Condition: Good Clinical Impression: Abdominal cramping Abdominal pain Qualifiers: Abdominal location: upper abdomen, unspecified Qualified Code(s): R10.10 - Upper abdominal pain, unspecified - Discharge Information *PRESCRIPTION DRUG MONITORING PROGRAM REVIEWED*: No *COPY OF PRESCRIPTION DRUG MONITORING REPORT IN PATIENT SHARA: No Instructions: Abdominal Pain, Adult, [id number] Referrals: Cherie Peter NP [Primary Care Provider] - Forms: ED Department Discharge Additional Instructions: You were evaluated in the ED for your ongoing abdomen pain, and bloody stools. Labs are repeated at today's visit, and you had abdomen x-rays taken as well. This did not demonstrate an extra amount of stool in your colon that would suggest constipation. Laboratory evaluation done at today's visit was within normal limits. You do not have a bacterial infection that should be causing your issues. It is likely that your abdomen pain could be due to IBS, but this is not a diagnosis I can make in the ER. Nonetheless due to your bloody stools and cramping you will be started on a course of prednisone, Bentyl for abdomen cramps, and Reglan for nausea. As you are taking an SSRI, Reglan can cause some extrapyramidal side effects; if you notice some tics, jerks, or other involuntary movements, please stop taking the Reglan. Recommend you stick to a clear liquid diet advance to bland as tolerated over the next 48 to 72 hours. You would also benefit from starting a probiotic in your diet, if you are not already doing so, please asked the pharmacist for a good 1 they should pull in out of the fridge for you. Please keep your appointment with Cherie Peter for follow-up, and a possible GI referral. Please return to the ER at any time if your symptoms change or worsen. Sepsis Event Note (ED) - Evaluation Sepsis Screening Result: No Definite Risk - Focused Exam Vital Signs: Vital Signs Temp Pulse Resp BP Pulse Ox 03/20/20 11:20 98 F 90 16 125/78 97 - My Orders Last 24 Hours: My Active Orders 03/20/20 11:54 Sodium Chloride 0.9% [Saline Flush] 10 ml FLUSH ASDIRECTED PRN Peripheral IV Insertion Adult [OM.PC] Routine 03/20/20 11:55 Peripheral IV Care [RC] . DIRECTED - Assessment/Plan Last 24 Hours: My Active Orders 03/20/20 11:54 Sodium Chloride 0.9% [Saline Flush] 10 ml FLUSH ASDIRECTED PRN Peripheral IV Insertion Adult [OM.PC] Routine 03/20/20 11:55 Peripheral IV Care [RC] . DIRECTED
--- NOTE | 2020-03-20 12:21 | CR ---
Abdomen: Supine and upright views the abdomen were obtained. Comparison: Prior CT abdomen and pelvis exam of 03/17/20. Surgical clips are seen from prior cholecystectomy. Bowel gas pattern appears normal. No abnormal calcifications or discrete soft tissue abnormality is seen. No free air is seen. Impression: 1. Nothing acute is seen on 2 view abdominal x-ray. Diagnostic code #2 This report was dictated in MDT
[2020-03-20] MEDS ORDERED: Dicyclomine 10 MG Cap PO ONE (13:16)
== END 2020-03-20 14:33 | disposition home or self-care (01) ==
LOC: JD.ED 11:09
DX: R10.10 Upper abdominal pain, unspecified (principal); F32.9 Major depressive disorder, single episode, unspecified; E66.9 Obesity, unspecified; Z68.41 Body mass index [BMI] 40.0-44.9, adult; F17.210 Nicotine dependence, cigarettes, uncomplicated; R11.2 Nausea with vomiting, unspecified; Z90.49 Acquired absence of other specified parts of digestive tract; Z79.899 Other long term (current) drug therapy; Z91.048 Other nonmedicinal substance allergy status; Z91.040 Latex allergy status
CPT/HCPCS: 36415; 74019; 80053; 81001; 83690; 85007; 85027; 86140; 96361; 96374; 96375; 99284; A9270; J1170; J2765; J7030

== ENCOUNTER 2020-03-21 19:51 | Observation (INO) | payer BC, OTHER, SELFPAY ==
[2020-03-21] MEDS ORDERED: Lactated Ringers 1,000 ML IV ONE (20:19)
[2020-03-21] MEDS ORDERED: Pantoprazole 40 MG Vial IVPUSH ONE ×2 (20:20→22:31)
[2020-03-21] MEDS ORDERED: HYDROmorphone 0.5 MG/0.5 ML Syringe IVPUSH ONE ×2 (20:21→22:24)
[2020-03-21] MEDS ORDERED: Ondansetron 4 MG/2 ML SDV IVPUSH ONE ×2 (20:21→22:25)
--- NOTE | 2020-03-21 20:27 | EDM.PDOC ---
ED HPI GENERAL MEDICAL PROBLEM - General Chief Complaint: Gastrointestinal Problem Stated Complaint: VOMITING Time Seen by Provider: 03/21/20 19:56 Source of Information: Reports: Patient History Limitations: Reports: No Limitations - History of Present Illness INITIAL COMMENTS - FREE TEXT/NARRATIVE: This is a 25-year-old female. This is her third time and 4 days to come to the ER due to abdominal pain. The first time she came she was having more sided pain and she got a CT scan that was noncontrast that did not show any acute findings. The next time she came yesterday she got a KUB that suggested she had lots of stool. She says she has some good bowel movements but she continues to have abdominal pain and vomit. About 11:00 this morning she had an episode of uncontrolled vomiting and she did vomit up this reddish coffee ground metal tasting type stuff. Then she has not vomited any of it up she has not noted any black or tarry looking stools or maroon-looking stools. She says she has some very good bowel movement so she does not think she is packed up any further. Due to the uncontrolled vomiting and the pain she comes to the ER. Her gallbladder has been removed. A history of fairly severe esophageal reflux that she takes Tums for but he says it does not help. After all this vomiting she flores from the epigastric area all the way into her throat. She cannot seem to stop vomiting and she needs to have epigastric pain. She denies any fever chills denies any cough or congestion. Epigastric Pain Score (Numeric/FACES): 3 - Related Data Allergies Allergy/AdvReac Type Severity Reaction Status Date / Time grass pollen Allergy Severe Rash Verified 03/22/20 00:12 latex Allergy Severe Rash Verified 03/22/20 00:12 lavender (Lavandula Allergy Severe Rash Verified 03/22/20 00:12 angustifolia) Fake Metals Allergy Severe Rash Uncoded 03/22/20 00:12 Home Meds: Home Meds hydrOXYzine HCL [Atarax] 10 mg PO BEDTIME PRN 04/13/19 [History] Sertraline [Zoloft] 100 mg PO BEDTIME 10/29/19 [History] Orphenadrine [Norflex] 100 mg PO TID PRN 10/31/19 [History] cephALEXin [Cephalexin] 500 mg PO BID #10 capsule 03/17/20 [Rx] Dicyclomine [Bentyl] 20 mg PO TID #21 tab 03/20/20 [Rx] Metoclopramide HCl [Reglan] 10 mg PO QID #20 tablet 03/20/20 [Rx] Metoprolol Tartrate 0 mg PO DAILY 03/20/20 [History] predniSONE 20 mg PO ASDIRECTED #15 tab 03/20/20 [Rx] Past Medical History HEENT History: Reports: Impaired Vision Cardiovascular History: Reports: Arrhythmia Other Cardiovascular History: Hx of SVT at age 15 was evaluated by pharmacy salesperson about one year ago, placed on holter no events noted. Respiratory History: Reports: None Gastrointestinal History: Reports: Cholelithiasis Genitourinary History: Reports: Other (See Below) Other Genitourinary History: Pt states has had kidneys looked at in past and they are ok. PHARMACY TECHNICIAN INSTRUCTOR History: Reports: Polycystic Ovaries Other PHARMACY TECHNICIAN INSTRUCTOR History: PCOS Musculoskeletal History: Reports: Back Pain, Chronic, Other (See Below) Other Musculoskeletal History: carpal tunnel in both wrist Neurological History: Reports: Headaches, Chronic, Migraines, Seizure Other Neuro History: seizure from choking episode Psychiatric History: Reports: Depression, OCD, PTSD, Suicidal Ideation Endocrine/Metabolic History: Reports: Obesity/BMI 30+, Other (See Below) Other Endocrine/Metabolic History: prediabetic Hematologic History: Reports: None Immunologic History: Reports: None Oncologic (Cancer) History: Reports: None Dermatologic History: Reports: Eczema Other Dermatologic History: heat rash on arms - Infectious Disease History Infectious Disease History: Reports: None - Past Surgical History HEENT Surgical History: Reports: Oral Surgery Other HEENT Surgeries/Procedures: wisdom teeth removed GI Surgical History: Reports: Cholecystectomy, Colonoscopy Social & Family History - Family History Family Medical History: Noncontributory Cardiac: Reports: CAD Musculoskeletal: Reports: Arthritis Hematologic: Reports: Other (See Below) Other Hematologic Family History: sister from rare blood disorder - Tobacco Use Smoking Status *Q: Current Every Day Smoker Years of Tobacco use: 1 Packs/Tins Daily: 0.5 - Caffeine Use Caffeine Use: Reports: Coffee, Soda - Recreational Drug Use Recreational Drug Use: No - Living Situation & Occupation Living situation: Reports: , Other (with roomates) 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 Denies: Diarrhea : Reports: No Symptoms Musculoskeletal: Reports: No Symptoms Skin: Reports: No Symptoms Neurological: Reports: No Symptoms Psychiatric: Reports: Anxiety Hematologic/Lymphatic: Reports: No Symptoms ED EXAM, GI/ABD - Physical Exam Exam: See Below Exam Limited By: No Limitations General Appearance: Alert, WD/WN, Mild Distress Eyes: Bilateral: Normal Appearance Ears: Normal External Exam Nose: Normal Inspection Throat/Mouth: Normal Inspection, Normal Lips, Normal Oropharynx, Normal Voice, No Airway Compromise, Other (There is no suggestion of blood in her oropharynx or her oral cavity) Head: Normocephalic Neck: Supple Respiratory/Chest: No Respiratory Distress, Lungs Clear, Normal Breath Sounds Cardiovascular: Regular Rate, Rhythm, No Murmur GI/Abdominal Exam: Other (Very tender in epigastric area and upper abdomen on palpation, there is no rigidity or peritoneal signs noted her lower abdomen is nontender) Rectal (Female) Exam: Heme + Stool Back Exam: Full Range of Motion Extremities: Normal Inspection, Normal Range of Motion Neurological: Alert, Oriented Psychiatric: Anxious Skin Exam: Warm, Dry Course - Vital Signs Last Recorded V/S: Last Vital Signs Temp 98.1 F 03/22/20 00:12 Pulse 80 03/22/20 00:12 Resp 17 03/22/20 00:12 BP 99/57 L 03/22/20 00:12 Pulse Ox 98 03/22/20 00:12 - Orders/Labs/Meds Orders: Medication Orders Lactated Ringer's (Ringers, Lactated) 1,000 mls @ 150 mls/hr IV ASDIRECTED [facility] Last Admin: 03/22/20 00:51 Dose: 150 mls/hr Documented by: BRI Promethazine HCl 25 mg/ Sodium (Chloride) 51 mls @ 100 mls/hr IV Q6H PRN PRN Reason: Nausea/Vomiting Morphine Sulfate (Morphine) 1 mg IVPUSH Q2H PRN PRN Reason: Pain Ondansetron HCl (Zofran) 4 mg IVPUSH Q4H PRN PRN Reason: Nausea/Vomiting Pantoprazole Sodium (Protonix Iv) 40 mg IVPUSH DAILY CHRISTIANO Labs: Laboratory Tests 03/21/20 03/21/20 03/21/20 Range/Units 20:30 20:30 20:30 WBC 14.12 H (3.98-10.04) K/mm3 RBC 4.60 (3.98-5.22) M/mm3 Hgb 14.5 (11.2-15.7) gm/dl Hct 42.7 (34.1-44.9) % MCV 92.8 (79.4-94.8) fl MCH 31.5 (25.6-32.2) pg MCHC 34.0 (32.2-35.5) g/dl RDW Std Deviation 42.1 (36.4-46.3) fL Plt Count 440 H (182-369) K/mm3 MPV 8.9 L (9.4-12.3) fl Neut % (Auto) 61.7 (34.0-71.1) % Lymph % (Auto) 32.6 (19.3-51.7) % Humphreys % (Auto) 5.2 (4.7-12.5) % Eos % (Auto) 0.3 L (0.7-5.8) Baso % (Auto) 0.1 (0.1-1.2) % Neut # (Auto) 8.70 H (1.56-6.13) K/mm3 Lymph # (Auto) 4.61 H (1.18-3.74) K/mm3 Humphreys # (Auto) 0.73 H (0.24-0.36) K/mm3 Eos # (Auto) 0.04 (0.04-0.36) K/mm3 Baso # (Auto) 0.02 (0.01-0.08) K/mm3 Manual Slide Review Normal smear Sodium 140 (136-145) mEq/L Potassium 3.3 L (3.5-5.1) mEq/L Chloride 101 (98-107) mEq/L Carbon Dioxide 24 (21-32) mEq/L Anion Gap 18.3 H (5-15) BUN 7 (7-18) mg/dL Creatinine 1.0 (0.55-1.02) mg/dL Est Cr Clr Drug Dosing TNP Estimated GFR (MDRD) > 60 (>60) mL/min BUN/Creatinine Ratio 7.0 L (14-18) Glucose 88 (74-106) mg/dL Calcium 9.5 (8.5-10.1) mg/dL Total Bilirubin 0.4 (0.2-1.0) mg/dL AST 13 L (15-37) U/L ALT 21 (14-59) U/L Alkaline Phosphatase 67 (46-116) U/L Total Protein 8.2 (6.4-8.2) g/dl Albumin 3.6 (3.4-5.0) g/dl Globulin 4.6 gm/dL Albumin/Globulin Ratio 0.8 L (1-2) Lipase 142 (73-393) U/L HCG, Qual Negative (NEGATIVE) Meds: Medications Generic Name Dose Route Start Last Admin Trade Name Freq PRN Reason Stop Dose Admin Lactated Ringer's 1,000 mls @ 150 mls/hr 03/22/20 00:45 03/22/20 00:51 Ringers, Lactated IV 150 mls/hr ASDIRECTED CHRISTIANO Administration Promethazine HCl 25 mg/ Sodium 51 mls @ 100 mls/hr 03/22/20 05:00 Chloride IV Q6H PRN Nausea/Vomiting Morphine Sulfate 1 mg 03/22/20 02:13 Morphine IVPUSH Q2H PRN Pain Ondansetron HCl 4 mg 03/22/20 02:12 Zofran IVPUSH Q4H PRN Nausea/Vomiting Pantoprazole Sodium 40 mg 03/22/20 09:00 Protonix Iv IVPUSH DAILY CHRISTIANO Discontinued Medications Generic Name Dose Route Start Last Admin Trade Name Freq PRN Reason Stop Dose Admin Hydromorphone HCl 0.5 mg 03/21/20 20:21 03/21/20 20:47 Dilaudid IVPUSH 03/21/20 20:22 0.5 mg ONETIME ONE Administration Hydromorphone HCl 0.5 mg 03/21/20 22:24 03/21/20 22:35 Dilaudid IVPUSH 03/21/20 22:25 0.5 mg ONETIME ONE Administration Lactated Ringer's 1,000 mls @ 1,000 mls/hr 03/21/20 20:19 03/21/20 20:40 Ringers, Lactated IV 03/21/20 21:18 1,000 mls/hr ASDIRECTED ONE Administration Promethazine HCl 25 mg/ Sodium 51 mls @ 100 mls/hr 03/21/20 22:32 03/21/20 22:58 Chloride IV 03/21/20 23:02 100 mls/hr ONETIME ONE Administration Ondansetron HCl 4 mg 03/21/20 20:21 03/21/20 20:45 Zofran IVPUSH 03/21/20 20:22 4 mg ONETIME ONE Administration Ondansetron HCl 4 mg 03/21/20 22:25 03/21/20 22:35 Zofran IVPUSH 03/21/20 22:26 4 mg ONETIME ONE Administration Pantoprazole Sodium 40 mg 03/21/20 20:20 03/21/20 20:36 Protonix Iv IVPUSH 03/21/20 20:21 40 mg ONETIME ONE Administration Pantoprazole Sodium 40 mg 03/21/20 22:31 03/21/20 22:58 Protonix Iv IVPUSH 03/21/20 22:32 40 mg ONETIME ONE Administration - Re-Assessments/Exams Free Text/Narrative Re-Assessment/Exam: 03/21/20 20:27 The patient vomited in the ER it does appear to have flecks of blood in it by visual inspection. She has not eaten or drunk anything to have a reddish appearance or anything that looks like little streaks of blood. 03/21/20 22:33 The patient has reoccurring nausea and burning in her throat requiring Zofran and now IV Phenergan. I have also provided some Protonix as well as some Dilaudid to help. 03/21/20 23:[address] Billy and she will admit the patient to observation for further evaluation and treatment. 03/22/20 02:33 The patient and to feel better after the medication and prior to being placed in observation. Departure - Departure Time of Disposition: 23:50 Disposition: Admitted As Inpatient 68 Condition: Fair Clinical Impression: Acute gastritis with bleeding Qualifiers: Gastritis type: unspecified gastritis Qualified Code(s): K29.01 - Acute gastritis with bleeding Nausea and vomiting Qualifiers: Vomiting type: unspecified Vomiting Intractability: non-intractable Qualified Code(s): R11.2 - Nausea with vomiting, unspecified Abdominal pain Qualifiers: Abdominal location: upper abdomen, unspecified Qualified Code(s): R10.10 - Upper abdominal pain, unspecified Esophageal reflux disease Qualifiers: Esophagitis presence: with esophagitis Qualified Code(s): K21.0 - Gastro- esophageal reflux disease with esophagitis - Discharge Information Sepsis Event Note (ED) - Evaluation Sepsis Screening Result: No Definite Risk - Focused Exam Vital Signs: Vital Signs Temp Pulse Resp BP Pulse Ox 03/21/20 20:58 97.1 F 84 20 96/54 L 98 03/21/20 20:04 97.6 F 100 16 113/75 99 ED Communication - ED Communication Date/Time Date: 03/21/20 Time Called: 23:33 - Discussed Case With (1) Discussed Case With (1): Admitting Provider Person/s Notified (1): Dr. Billy (Agrees to admit the patient to observation for further evaluation and treatment)
[2020-03-21] MEDS ORDERED: Promethazine 25 MG in Sodium Chloride 0.9% 50 ML IV ONE (22:32)
[2020-03-22] MEDS: Lactated Ringers 1,000 ML IV SCH ×4 (00:51→21:22)
[2020-03-22] MEDS: Ondansetron 4 MG/2 ML SDV IVPUSH PRN ×2 (03:14→13:14)
[2020-03-22] MEDS: Morphine 2 MG/ML Syringe IVPUSH PRN ×2 (05:18→12:33)
[2020-03-22] MEDS: Promethazine 25 MG in Sodium Chloride 0.9% 50 ML IV PRN ×2 (05:21→15:27)
[2020-03-22] MEDS: Pantoprazole 40 MG Vial IVPUSH SCH (08:17)
--- NOTE | 2020-03-22 09:44 | PCM.HP.2 ---
H&P History of Present Illness - General Date of Service: 03/22/20 Admit Problem/Dx: Admission Diagnosis/Problem Admission Diagnosis/Problem Gastritis - History of Present Illness Initial Comments - Free Text/Narative: This is a 25-year-old female s/p cholecystectomy. This is her third time and 4 days to come to the ER due to abdominal pain. The first time she came she was having more flank pain and she got a CT scan that was noncontrast that did not show any acute findings. The next time she came yesterday she got a KUB that suggested she had lots of stool. She says she has some good bowel movements but she continues to have abdominal pain and vomit. About 11:00 this morning she had an episode of uncontrolled vomiting and she did vomit up this reddish coffee ground metal tasting type stuff. Then she has not vomited any of it up she has not noted any black or tarry looking stools or maroon-looking stools. She says she has some very good bowel movement so she does not think she is packed up any further. Due to the uncontrolled vomiting and the pain she comes to the ER. A history of fairly severe esophageal reflux that she takes Tums for but he says it does not help. After all this vomiting she flores from the epigastric area all the way into her throat. She cannot seem to stop vomiting and she needs to have epigastric pain. She denies any fever chills denies any cough or congestion. Epigastric Pain Score (Numeric/FACES): 3 Headache Pain Score (Numeric/FACES): 5 - Related Data Allergies/Adverse Reactions: Allergies Allergy/AdvReac Type Severity Reaction Status Date / Time grass pollen Allergy Intermediate Rash Verified 03/22/20 09:40 latex Allergy Intermediate Rash Verified 03/22/20 09:40 lavender (Lavandula Allergy Intermediate Rash Verified 03/22/20 09:40 angustifolia) Fake Metals Allergy Intermediate Rash Uncoded 03/22/20 09:40 Home Medications: Home Meds hydrOXYzine HCL [hydrOXYzine] 10 mg PO BEDTIME PRN 04/13/19 [History] Sertraline [Zoloft] 100 mg PO BEDTIME 10/29/19 [History] Orphenadrine [Norflex] 100 mg PO TID PRN 02/05/20 [History] Dicyclomine [Bentyl] 20 mg PO TID #21 tab 03/20/20 [Rx] Metoclopramide HCl [Reglan] 10 mg PO QID #20 tablet 03/20/20 [Rx] Metoprolol Tartrate 50 mg PO DAILY 03/20/20 [History] norethindrone-e.estradioL-iron [Hernan Fe 1.5-30 Tablet] 1 tab PO DAILY 03/22/20 [History] Pantoprazole Sodium [Protonix] 40 mg PO ACBREAKFAST #45 tablet. 03/24/20 [Rx] Past Medical History HEENT History: Reports: Impaired Vision Cardiovascular History: Reports: Arrhythmia Other Cardiovascular History: Hx of SVT at age 15 was evaluated by product developer about one year ago, placed on holter no events noted. Respiratory History: Reports: None Gastrointestinal History: Reports: Cholelithiasis Genitourinary History: Reports: Other (See Below) Other Genitourinary History: Pt states has had kidneys looked at in past and they are ok. 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: Reports: Polycystic Ovaries Other OB/BYN History: PCOS Musculoskeletal History: Reports: Back Pain, Chronic, Other (See Below) Other Musculoskeletal History: carpal tunnel in both wrist Neurological History: Reports: Headaches, Chronic, Migraines, Seizure Other Neuro History: seizure from choking episode Psychiatric History: Reports: Depression, OCD, PTSD, Suicidal Ideation Endocrine/Metabolic History: Reports: Obesity/BMI 30+, Other (See Below) Other Endocrine/Metabolic History: prediabetic Hematologic History: Reports: None Immunologic History: Reports: None Oncologic (Cancer) History: Reports: None Dermatologic History: Reports: Eczema Other Dermatologic History: heat rash on arms - Infectious Disease History Infectious Disease History: Reports: None - Past Surgical History HEENT Surgical History: Reports: Oral Surgery Other HEENT Surgeries/Procedures: wisdom teeth removed GI Surgical History: Reports: Cholecystectomy, Colonoscopy Social & Family History - Family History Family Medical History: Noncontributory Cardiac: Reports: CAD Musculoskeletal: Reports: Arthritis Hematologic: Reports: Other (See Below) Other Hematologic Family History: sister from rare blood disorder - Tobacco Use Smoking Status *Q: Current Every Day Smoker Years of Tobacco use: 1 Packs/Tins Daily: 0.5 Used Tobacco, but Quit: No - Caffeine Use Caffeine Use: Reports: Coffee, Soda Other Caffeine Use: pt will usually have one cup of coffee a day and one can of pop a day. 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 Denies: Fever, Chills, Weakness, Fatigue, Night Sweats, Diaphoresis HEENT: Reports: Headaches. Denies: Hearing Changes, Rhinitis, Post Nasal Drip, Sinus Congestion, Sore Throat, Vertigo, Visual Changes Pulmonary: Denies: Shortness of Breath, Wheezing, Pleuritic Chest Pain, Cough, Sputum, Hemoptysis Cardiovascular: Denies: Chest Pain, Palpitations, Dyspnea on Exertion, Orth opnea, PND, Edema, Lightheadedness, Syncope, Claudication Gastrointestinal: Reports: Abdominal Pain, Anorexia, Constipation, Decreased Appetite, Distension, Flatus, Hematemesis, Nausea, Vomiting. Denies: Diarrhea, Hematochezia, Melena, Mucous in Stool, Stool Incontinence Genitourinary: Denies: Dysuria, Frequency, Burning, Pain, Urgency, Incontinence Musculoskeletal: Reports: Back Pain. Denies: Joint Pain, Joint Swelling, Muscle Pain, Muscle Stiffness Skin: Denies: Cyanosis, Jaundice, Mottled, Pallor, Diaphoresis Psychiatric: Reports: Depression, Anxiety. Denies: Mood Lability, Agitation, Cravings Neurological: Reports: Headache. Denies: Dizziness Exam - Exam Exam: See Below - Vital Signs Vital Signs: Last Vital Signs Temp 97.5 F 03/22/20 03:13 Pulse 70 03/22/20 03:13 Resp 18 03/22/20 03:13 BP 111/58 L 03/22/20 03:13 Pulse Ox 98 03/22/20 03:13 Weight: 113.58 kg - Exam General: Alert, Oriented, Cooperative, Moderate Distress HEENT: Conjunctiva Clear, EACs Clear, Hearing Intact, Mucosa Moist & [place] Neck: Supple, Trachea Midline Lungs: Clear to Auscultation, Normal Respiratory Effort. No: Decreased Breath Sounds, Crackles, Rales, Rhonchi, Rub, Stridor, Wheezing Cardiovascular: Regular Rate, Regular Rhythm. No: Systolic Murmur, Diastolic Murmur, Rubs, Gallop/S3, Gallop/S4 GI/Abdominal Exam: Normal Bowel Sounds, Soft, Distended, Tender (R flank). No: Guarding, Rigid Extremities: Normal Range of Motion, Non-Tender Neuro Extensive - Mental Status: Alert, Oriented x3 Psychiatric: Alert, Normal Affect, Anxious - Patient Data Result Diagrams: 03/22/20 05:00 03/24/20 07:56 Sepsis Event Note - Evaluation Sepsis Screening Result: No Definite Risk - Problem List (1) Constipation SNOMED Code(s): 56226218 ICD Code: K59.00 - CONSTIPATION, UNSPECIFIED Status: Acute Current Visit: No Qualifiers: Constipation type: unspecified constipation type Qualified Code(s): K59.00 - Constipation, unspecified (2) Esophageal reflux disease SNOMED Code(s): 721396171 ICD Code: K21.9 - GASTRO-ESOPHAGEAL REFLUX DISEASE WITHOUT ESOPHAGITIS Status: Acute Current Visit: Yes Qualifiers: Esophagitis presence: with esophagitis Qualified Code(s): K21.0 - Gastro-esophageal reflux disease with esophagitis (3) Nausea and vomiting SNOMED Code(s): 91134341 ICD Code: R11.2 - NAUSEA WITH VOMITING, UNSPECIFIED Status: Acute Current Visit: Yes Qualifiers: Vomiting type: unspecified Vomiting Intractability: non-intractable Qualified Code(s): R11.2 - Nausea with vomiting, unspecified (4) Abdominal cramping SNOMED Code(s): 857276706, 836476680 ICD Code: R10.9 - UNSPECIFIED ABDOMINAL PAIN Status: Acute Current Visit: No (5) Obesity, Class III, BMI 40-49.9 (morbid obesity) SNOMED Code(s): 216741840, 393780381, 20325004719353 ICD Code: E66.01 - MORBID (SEVERE) OBESITY DUE TO EXCESS CALORIES Status: Acute Current Visit: Yes (6) Abdominal pain SNOMED Code(s): 43242140 ICD Code: R10.9 - UNSPECIFIED ABDOMINAL PAIN Status: Acute Current Visit: Yes Qualifiers: Abdominal location: upper abdomen, unspecified Qualified Code(s): R10.10 - Upper abdominal pain, unspecified (7) Chronic low back pain SNOMED Code(s): 012016907 ICD Code: M54.5 - LOW BACK PAIN; G89.29 - OTHER CHRONIC PAIN Status: Acute Current Visit: No Qualifiers: Back pain laterality: right Sciatica presence: with sciatica Sciatica laterality: sciatica of right side Qualified Code(s): M54.41 - Lumbago with sciatica, right side; G89.29 - Other chronic pain (8) Headache SNOMED Code(s): 26988024 ICD Code: R51 - HEADACHE Status: Acute Current Visit: No Qualifiers: Headache type: unspecified Headache chronicity pattern: acute headache Intractability: not intractable Qualified Code(s): R51 - Headache (9) Migraine SNOMED Code(s): 55644073 ICD Code: G43.909 - MIGRAINE, UNSP, NOT INTRACTABLE, WITHOUT STATUS MIGRAINOSUS Status: Acute Current Visit: No Qualifiers: Migraine type: hemiplegic Status migrainosus presence: without status migrainosus Intractability: not intractable Qualified Code(s): G43.409 - Hemiplegic migraine, not intractable, without status migrainosus (10) Current smoker SNOMED Code(s): 79727770 ICD Code: F17.200 - NICOTINE DEPENDENCE, UNSPECIFIED, UNCOMPLICATED Status: Acute Current Visit: Yes Problem List Initiated/Reviewed/Updated: Yes Assessment/Plan Comment:: Constipation Esophageal reflux disease Nausea and vomiting Abdominal pain Hypokalemia Worsening abdominal pain Intractable nausea and vomiting prior to consult Volume depleted in ED PLAN - IVF repletion - Scheduled Zofran - PRN pain control - Replace KCl - Magnesium and PO4 level - NPO for now Current smoker Every day smoker Tried Chantix without improvement and suicidal ideation PLAN - Nicotine patch - Discuss importance of cessation Headache Migraine Uses NSAIDs at home PLAN - PRN NSAIDs PROPHYLAXIS DVT- Ambulation GI-Pantoprazole CODE STATUS: FULL CODE DISPOSITION: Admitted to floor for IVF repletion, NPO status, symptomatic treatment. - Mortality Measure Prognosis:: Good
[2020-03-22] MEDS: Nicotine 21 MG/24 Hr Patch TRDERM SCH (11:02)
[2020-03-22] MEDS: Potassium Chloride 10 MEQ in Premix Bag 1 BAG IV SCH ×4 (11:03→16:05)
[2020-03-22] MEDS ORDERED: Scopolamine 1.5 MG Transdermal Patch TRDERM PRN (13:13)
[2020-03-22] MEDS ORDERED: Iopamidol 612 MG/ML 100 ML Bottle IVPUSH ONE (13:38)
[2020-03-22] MEDS ORDERED: Sodium Chloride 0.9% 10 ML Syringe FLUSH PRN (13:38)
[2020-03-22] MEDS ORDERED: Diatrizoate Meglumine/Diatrizoate Sodium 37% 120 ML Bottle PO ONE (13:38)
[2020-03-22] MEDS: Ondansetron 4 MG/2 ML SDV IVPUSH SCH (18:58)
[2020-03-22] MEDS: Acetaminophen 325 MG Tab PO PRN (18:58)
[2020-03-23] MEDS: Ondansetron 4 MG/2 ML SDV IVPUSH SCH ×5 (00:24→19:43)
[2020-03-23] MEDS: Morphine 2 MG/ML Syringe IVPUSH PRN (00:25)
[2020-03-23] MEDS: Promethazine 25 MG in Sodium Chloride 0.9% 50 ML IV PRN ×2 (02:00→20:49)
[2020-03-23] MEDS: Lactated Ringers 1,000 ML IV SCH ×2 (04:00→10:26)
[2020-03-23] MEDS: Acetaminophen 325 MG Tab PO PRN ×2 (04:14→17:50)
[2020-03-23] MEDS: Ibuprofen 400 MG Tab PO PRN ×2 (06:16→15:52)
[2020-03-23] MEDS: Nicotine 21 MG/24 Hr Patch TRDERM SCH (08:15)
[2020-03-23] MEDS: Pantoprazole 40 MG Vial IVPUSH SCH (08:15)
[2020-03-23] MEDS ORDERED: Magnesium Sulfate/Water 2 GM in Premix Bag 1 BAG IV STA (10:53)
[2020-03-23] MEDS ORDERED: Sodium Phosphate 30 MMOLE in Sodium Chloride 0.9% 250 ML IV ONE (11:15)
[2020-03-23] MEDS ORDERED: Potassium Phosphates 30 MMOLE in Sodium Chloride 0.9% 500 ML IV ONE (15:00)
[2020-03-23] MEDS ORDERED: Magnesium Sulfate/Water 2 GM in Premix Bag 1 BAG IV ONE (15:30)
[2020-03-23] MEDS: Potassium Phosphates 30 MMOLE in Sodium Chloride 0.9% 500 ML IV ONE ×2 (17:44→19:40)
[2020-03-24] MEDS: Ondansetron 4 MG/2 ML SDV IVPUSH SCH ×3 (01:41→11:40)
[2020-03-24] MEDS: Ibuprofen 400 MG Tab PO PRN (07:27)
[2020-03-24] MEDS: Nicotine 21 MG/24 Hr Patch TRDERM SCH (08:26)
[2020-03-24] MEDS: Pantoprazole 40 MG Vial IVPUSH SCH (08:26)
--- NOTE | 2020-03-24 09:49 | CT ---
CT abdomen and pelvis Technique: Multiple axial sections were obtained from above the dome of the diaphragm inferiorly through the pubic symphysis. Intravenous contrast was utilized. Small amount of oral contrast is also noted. Findings: Mild bibasilar atelectasis is noted. Liver contains no focal parenchymal abnormality. Spleen appears within normal limits. Adrenal glands show no nodule. Kidneys show symmetric contrast enhancement. Kidneys have a normal appearance on this exam. No ureteral dilatation or ureteral calcifications are seen. Pancreas appears normal. Surgical clips are seen from prior cholecystectomy. Aorta shows no aneurysm. Appendix is seen which is normal in size. No pelvic mass or adenopathy is seen. Bone window settings were reviewed which shows no acute osseous finding. Impression: 1. Mild bibasilar atelectasis. 2. Nothing acute is otherwise seen on CT study of the abdomen and pelvis. Diagnostic code #2 This report was dictated in MDT I agree with preliminary report from [facility], finalized on 03/22/20, 3:49 PM Central Daylight Time
[2020-03-24] MEDS: Acetaminophen 325 MG Tab PO PRN (10:36)
--- NOTE | 2020-03-24 13:17 | PCM.PN ---
- General Info Date of Service: 03/23/20 Subjective Update: Feeling OK Tolerated clear liquid diet No abdominal pain Nausea resolved - Patient Data Vitals - Most Recent: Last Vital Signs Temp 98.4 F 03/24/20 08:21 Pulse 81 03/24/20 08:21 Resp 14 03/24/20 08:21 BP 116/57 L 03/24/20 08:21 Pulse Ox 97 03/24/20 08:21 Weight - Most Recent: 113.58 kg - Exam General: Alert, Oriented, Cooperative, No Acute Distress HEENT: Pupils Equal, Pupils Reactive, EOMI, Mucous Membr. Moist/[place] Neck: Supple, Trachea Midline, No JVD, No Thyromegaly, +2 Carotid Pulse wo Bruit. No: Lymphadenopathy Lungs: Clear to Auscultation, Normal Respiratory Effort, Decreased Breath Sounds. No: Crackles, Rales, Rhonchi, Rub, Stridor, Wheezing GI/Abdominal Exam: Normal Bowel Sounds, Soft, Non-Tender, Distended. No: Guarding, Rigid, Rebound Back Exam: No: CVA Tenderness (L), CVA Tenderness (R) Extremities: Normal Inspection, Normal Range of Motion, Non-Tender, No Pedal Edema, Normal Capillary Refill Psy/Mental Status: Alert, Normal Affect, Normal Mood Physical Findings Comments:: FINDINGS LIMITED DUE TO BODY HABITUS Sepsis Event Note - Evaluation Sepsis Screening Result: No Definite Risk - Problem List & Annotations (1) Abdominal pain SNOMED Code(s): 85359288 Code(s): R10.9 - UNSPECIFIED ABDOMINAL PAIN Status: Acute Current Visit: Yes Qualifiers: Abdominal location: upper abdomen, unspecified Qualified Code(s): R10.10 - Upper abdominal pain, unspecified (2) Esophageal reflux disease SNOMED Code(s): 104676248 Code(s): K21.9 - GASTRO-ESOPHAGEAL REFLUX DISEASE WITHOUT ESOPHAGITIS Status: Acute Current Visit: Yes Qualifiers: Esophagitis presence: with esophagitis Qualified Code(s): K21.0 - Gastro- esophageal reflux disease with esophagitis (3) Migraine SNOMED Code(s): 37051293 Code(s): G43.909 - MIGRAINE, UNSP, NOT INTRACTABLE, WITHOUT STATUS MIGRAINOSUS Status: Acute Current Visit: No Qualifiers: Migraine type: hemiplegic Status migrainosus presence: without status migrainosus Intractability: not intractable Qualified Code(s): G43.409 - Hemiplegic migraine, not intractable, without status migrainosus (4) Nausea and vomiting SNOMED Code(s): 65615074 Code(s): R11.2 - NAUSEA WITH VOMITING, UNSPECIFIED Status: Acute Current Visit: Yes Qualifiers: Vomiting type: unspecified Vomiting Intractability: non-intractable Qualified Code(s): R11.2 - Nausea with vomiting, unspecified (5) Menstrual cramps SNOMED Code(s): 311183469 Code(s): N94.6 - DYSMENORRHEA, UNSPECIFIED Status: Acute Current Visit: Yes (6) Menstruation SNOMED Code(s): 917626286 Code(s): PMS7936 - Status: Acute Current Visit: Yes (7) Current smoker SNOMED Code(s): 62404633 Code(s): F17.200 - NICOTINE DEPENDENCE, UNSPECIFIED, UNCOMPLICATED Status: Acute Current Visit: Yes (8) Obesity, Class III, BMI 40-49.9 (morbid obesity) SNOMED Code(s): 305258023, 863897577, 78552601547176 Code(s): E66.01 - MORBID (SEVERE) OBESITY DUE TO EXCESS CALORIES Status: Acute Current Visit: Yes (9) Abdominal cramping SNOMED Code(s): 193264904, 711269040 Code(s): R10.9 - UNSPECIFIED ABDOMINAL PAIN Status: Acute Current Visit: No (10) Adverse reaction to antidepressant drug SNOMED Code(s): 945155905 Code(s): T43.205A - ADVERSE EFFECT OF UNSPECIFIED ANTIDEPRESSANTS, INIT ENCNTR Status: Acute Current Visit: No (11) Chronic low back pain SNOMED Code(s): 647954751 Code(s): M54.5 - LOW BACK PAIN; G89.29 - OTHER CHRONIC PAIN Status: Acute Current Visit: No Qualifiers: Back pain laterality: right Sciatica presence: with sciatica Sciatica laterality: sciatica of right side Qualified Code(s): M54.41 - Lumbago with sciatica, right side; G89.29 - Other chronic pain (12) Constipation SNOMED Code(s): 55113676 Code(s): K59.00 - CONSTIPATION, UNSPECIFIED Status: Acute Current Visit: No Qualifiers: Constipation type: unspecified constipation type Qualified Code(s): K59.00 - Constipation, unspecified (13) Headache SNOMED Code(s): 33135537 Code(s): R51 - HEADACHE Status: Acute Current Visit: No Qualifiers: Headache type: unspecified Headache chronicity pattern: acute headache Intractability: not intractable Qualified Code(s): R51 - Headache (14) Low back pain SNOMED Code(s): 319779740 Code(s): M54.5 - LOW BACK PAIN Status: Acute Current Visit: No Qualifiers: Chronicity: chronic Back pain laterality: right Sciatica presence: with sciatica Sciatica laterality: sciatica of right side Qualified Code(s): M54.41 - Lumbago with sciatica, right side; G89.29 - Other chronic pain (15) Hypophosphatemia SNOMED Code(s): 4299573 Code(s): E83.39 - OTHER DISORDERS OF PHOSPHORUS METABOLISM Status: Acute Current Visit: Yes - Problem List Review Problem List Initiated/Reviewed/Updated: Yes - Assessment Assessment:: 03/21- Consulted 3 times in 4 days #1-Flank pain, negative CT abdomen #2- KUB with coprostasis #3- Intractable vomiting with episode of coffee ground emesis prior to consultation Very good BMs prior to consultation History of GERD She denies any fever chills denies any cough or congestion. Admitted with NPO status IVF repletion Advanced diet to clears and she tolerated well Pain controlled 03/23/2020 Pain controlled PO4 down from 5 to 2.4, replaced with KPO4 30Mmol and NaPO4 30Mmol K 3.2 to 3.5 Mg 1.9 to 2 replaced with 2gIV Patient started menstruating and having cramps as well as migraines NSAIDs controlling pain BM, loose without melena or blood - Plan Plan:: Menstruation with cramping Esophageal reflux disease Hypokalemia/Hypophosphatemia - D/C IVF - Advance diet as tolerated - Replace K and PO4 - Replace Mg to improve K - Repeat labs in AM Current smoker Every day smoker Tried Chantix without improvement and suicidal ideation PLAN - Nicotine patch - Discuss importance of cessation Headache Migraine Uses NSAIDs at home PLAN - PRN NSAIDs Nausea and vomiting, resolved Abdominal pain, resolved Constipation, resolved PROPHYLAXIS DVT- Ambulation GI-Pantoprazole CODE STATUS: FULL CODE DISPOSITION: Will remain admitted for diet advancement and electrolyte replacement.
--- NOTE | 2020-03-24 13:17 | PCM.DCSUM1 ---
Discharge Summary - Hospital Course HPI Initial Comments: This is a 25-year-old female s/p cholecystectomy. This is her third time and 4 days to come to the ER due to abdominal pain. The first time she came she was having more flank pain and she got a CT scan that was noncontrast that did not show any acute findings. The next time she came yesterday she got a KUB that suggested she had lots of stool. She says she has some good bowel movements but she continues to have abdominal pain and vomit. About 11:00 this morning she had an episode of uncontrolled vomiting and she did vomit up this reddish coffee ground metal tasting type stuff. Then she has not vomited any of it up she has not noted any black or tarry looking stools or maroon-looking stools. She says she has some very good bowel movement so she does not think she is packed up any further. Due to the uncontrolled vomiting and the pain she comes to the ER. A history of fairly severe esophageal reflux that she takes Tums for but he says it does not help. After all this vomiting she flores from the epigastric area all the way into her throat. She cannot seem to stop vomiting and she needs to have epigastric pain. She denies any fever chills denies any cough or congestion. Diagnosis: Stroke: No - Discharge Data Discharge Date: 03/24/20 Discharge Disposition: Home, Self-Care 01 Condition: Good - Referral to Home Health Primary Care Physician: Cherie Peter NP - Discharge Diagnosis/Problem(s) (1) Abdominal pain SNOMED Code(s): 29066326 ICD Code: R10.9 - UNSPECIFIED ABDOMINAL PAIN Status: Acute Current Visit: Yes Qualifiers: Abdominal location: upper abdomen, unspecified Qualified Code(s): R10.10 - Upper abdominal pain, unspecified (2) Esophageal reflux disease SNOMED Code(s): 723753883 ICD Code: K21.9 - GASTRO-ESOPHAGEAL REFLUX DISEASE WITHOUT ESOPHAGITIS Status: Acute Current Visit: Yes Qualifiers: Esophagitis presence: with esophagitis Qualified Code(s): K21.0 - Gastro-esophageal reflux disease with esophagitis (3) Migraine SNOMED Code(s): 28890916 ICD Code: G43.909 - MIGRAINE, UNSP, NOT INTRACTABLE, WITHOUT STATUS MIGRAINOSUS Status: Acute Current Visit: No Qualifiers: Migraine type: hemiplegic Status migrainosus presence: without status migrainosus Intractability: not intractable Qualified Code(s): G43.409 - Hemiplegic migraine, not intractable, without status migrainosus (4) Nausea and vomiting SNOMED Code(s): 42496172 ICD Code: R11.2 - NAUSEA WITH VOMITING, UNSPECIFIED Status: Acute Current Visit: Yes Qualifiers: Vomiting type: unspecified Vomiting Intractability: non-intractable Qualified Code(s): R11.2 - Nausea with vomiting, unspecified (5) Current smoker SNOMED Code(s): 58214000 ICD Code: F17.200 - NICOTINE DEPENDENCE, UNSPECIFIED, UNCOMPLICATED Status: Acute Current Visit: Yes (6) Hypophosphatemia SNOMED Code(s): 1126539 ICD Code: E83.39 - OTHER DISORDERS OF PHOSPHORUS METABOLISM Status: Acute Current Visit: Yes (7) Menstrual cramps SNOMED Code(s): 944055719 ICD Code: N94.6 - DYSMENORRHEA, UNSPECIFIED Status: Acute Current Visit: Yes (8) Menstruation SNOMED Code(s): 789774422 ICD Code: ARM1701 - Status: Acute Current Visit: Yes (9) Obesity, Class III, BMI 40-49.9 (morbid obesity) SNOMED Code(s): 245274684, 830521882, 05030824490403 ICD Code: E66.01 - MORBID (SEVERE) OBESITY DUE TO EXCESS CALORIES Status: Acute Current Visit: Yes (10) Abdominal cramping SNOMED Code(s): 440476973, 904017043 ICD Code: R10.9 - UNSPECIFIED ABDOMINAL PAIN Status: Acute Current Visit: No (11) Adverse reaction to antidepressant drug SNOMED Code(s): 897010836 ICD Code: T43.205A - ADVERSE EFFECT OF UNSPECIFIED ANTIDEPRESSANTS, INIT ENCNTR Status: Acute Current Visit: No (12) Chronic low back pain SNOMED Code(s): 207601927 ICD Code: M54.5 - LOW BACK PAIN; G89.29 - OTHER CHRONIC PAIN Status: Acute Current Visit: No Qualifiers: Back pain laterality: right Sciatica presence: with sciatica Sciatica laterality: sciatica of right side Qualified Code(s): M54.41 - Lumbago with sciatica, right side; G89.29 - Other chronic pain (13) Constipation SNOMED Code(s): 27843711 ICD Code: K59.00 - CONSTIPATION, UNSPECIFIED Status: Acute Current Visit: No Qualifiers: Constipation type: unspecified constipation type Qualified Code(s): K59.00 - Constipation, unspecified - Patient Summary/Data Hospital Course: 03/21- Consulted 3 times in 4 days #1-Flank pain, negative CT abdomen #2- KUB with coprostasis #3- Intractable vomiting with episode of coffee ground emesis prior to consultation Very good BMs prior to consultation History of GERD She denies any fever chills denies any cough or congestion. Admitted with NPO status IVF repletion Advanced diet to clears and she tolerated well Pain controlled 03/23/2020 Pain controlled PO4 down from 5 to 2.4, replaced with KPO4 30Mmol and NaPO4 30Mmol K 3.2 to 3.5 Mg 1.9 to 2 replaced with 2gIV Patient started menstruating and having cramps as well as migraines NSAIDs controlling pain BM, loose without melena or blood 03/24/2020 - Intermittent abdominal cramping, resolved with ibuprofen - Tolerating regular diet - Electrolytes normalized - Discharged on 6w pantoprazole trial, discussed importance of discontinuing if no improvement and need for further work up - Patient Instructions Diet: Usual Diet as Tolerated Driving: May Drive Today Notify Provider of: Fever, Increased Pain, Swelling and Redness, Nausea and/or Vomiting - Discharge Plan *PRESCRIPTION DRUG MONITORING PROGRAM REVIEWED*: No *COPY OF PRESCRIPTION DRUG MONITORING REPORT IN PATIENT SHARA: No Prescriptions/Med Rec: Pantoprazole Sodium [Protonix] 40 mg PO ACBREAKFAST #45 tablet. Home Medications: Home Meds hydrOXYzine HCL [hydrOXYzine] 10 mg PO BEDTIME PRN 04/13/19 [History] Sertraline [Zoloft] 100 mg PO BEDTIME 10/29/19 [History] Orphenadrine [Norflex] 100 mg PO TID PRN 10/31/19 [History] Dicyclomine [Bentyl] 20 mg PO TID #21 tab 03/20/20 [Rx] Metoclopramide HCl [Reglan] 10 mg PO QID #20 tablet 03/20/20 [Rx] Metoprolol Tartrate 50 mg PO DAILY 03/20/20 [History] norethindrone-e.estradioL-iron [[place]ernan Fe 1.5-30 Tablet] 1 tab PO DAILY 03/22/20 [History] Pantoprazole Sodium [Protonix] 40 mg PO ACBREAKFAST #45 tablet. 03/24/20 [Rx] Oxygen Therapy Mode: Room Air Patient Handouts: Gastritis, Adult, Pantoprazole tablets, Steps to Quit Smoking Forms: ED Department Discharge Referrals: Cherie Peter CERTIFIED MIDWIFE [Primary Care Provider] - (please call and schedule a follow up appointment with Cherie Peter for within 7-10 days.) - Discharge Summary/Plan Comment DC Time >30 min.: Yes - General Info Date of Service: 03/24/20 Subjective Update: Feels great Slept through the night Tolerating diet BM yesterday - Patient Data Vitals - Most Recent: Last Vital Signs Temp 98.4 F 03/24/20 08:21 Pulse 81 03/24/20 08:21 Resp 14 03/24/20 08:21 BP 116/57 L 03/24/20 08:21 Pulse Ox 97 03/24/20 08:21 Weight - Most Recent: 113.58 kg - Exam Physical Findings Comments:: General: Alert, Oriented, Cooperative, No Acute Distress HEENT: Pupils Equal, Pupils Reactive, EOMI, Mucous Membr. Moist/[place] Neck: Supple, Trachea Midline, No JVD, No Thyromegaly, +2 Carotid Pulse wo Bruit. No: Lymphadenopathy Lungs: Clear to Auscultation, Normal Respiratory Effort, Decreased Breath Sounds. No: Crackles, Rales, Rhonchi, Rub, Stridor, Wheezing GI/Abdominal Exam: Normal Bowel Sounds, Soft, Non-Tender, Distended. No: Guarding, Rigid, Rebound Back Exam: No: CVA Tenderness (L), CVA Tenderness (R) Extremities: Normal Inspection, Normal Range of Motion, Non-Tender, No Pedal Edema, Normal Capillary Refill Psy/Mental Status: Alert, Normal Affect, Normal Mood
[2020-03-24 13:33] VITALS: BP 116/59; PULSE 94
== END 2020-03-24 20:10 | disposition home or self-care (01) ==
LOC: JD.ED 19:51 → JD.MS 23:27
PROVIDERS: ADMIT Internal Medicine; ATTEND Internal Medicine
DX: R10.13 Epigastric pain (principal); R11.2 Nausea with vomiting, unspecified; K59.00 Constipation, unspecified; T43.205A Adverse effect of unspecified antidepressants, initial encounter; K21.0 Gastro-esophageal reflux disease with esophagitis; N94.6 Dysmenorrhea, unspecified; F32.9 Major depressive disorder, single episode, unspecified; F17.210 Nicotine dependence, cigarettes, uncomplicated; E66.01 Morbid (severe) obesity due to excess calories; G89.29 Other chronic pain; E86.9 Volume depletion, unspecified; M54.41 Lumbago with sciatica, right side; G43.409 Hemiplegic migraine, not intractable, without status migrainosus; E87.6 Hypokalemia; E83.39 Other disorders of phosphorus metabolism; Z90.49 Acquired absence of other specified parts of digestive tract; Z91.040 Latex allergy status; Z79.899 Other long term (current) drug therapy; Z68.41 Body mass index [BMI] 40.0-44.9, adult
CPT/HCPCS: 36415; 74177; 80048; 80053; 81001; 83690; 83735; 84100; 84703; 85025; 87635; 96361; 96365; 96366; 96367; 96375; 96376; 99284; A9270; C9113; G0378; J1170; J2270; J2405; J2550; J3475; J3480; J7040; J7050; J7120; Q9963; Q9967; 99283; J3490; U0002

== ENCOUNTER 2020-04-16 10:25 | Day surgery (SDC) | payer BC, OTHER ==
[~2020-04-16 10:25] MED LIST: Lactated Ringers 1,000 ML IV SCH; Lidocaine 1%/Sod Bicarbonate in NS 8.4% 1 ML Syringe IDERM PRN; Sodium Chloride 0.9% 10 ML Syringe FLUSH PRN
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
[2020-04-16] MEDS ORDERED: Propofol 200 MG/20 ML SDV ONE ×2 (11:01→12:38)
[2020-04-16] MEDS ORDERED: Lidocaine 1% 4 ML ONE (11:02)
[2020-04-16] MEDS ORDERED: Midazolam 1 MG/ML 2 ML SDV ONE (11:02)
[2020-04-16] MEDS ORDERED: fentaNYL 100 MCG/2 ML SDV ONE (12:37)
--- NOTE | 2020-04-16 12:57 | PCM48HPAN ---
Post Anesthesia Note - EVALUATION WITHIN 48HRS OF ANESTHETIC Vital Signs in Normal Range: Yes Patient Participated in Evaluation: Yes Respiratory Function Stable: Yes Airway Patent: Yes Cardiovascular Function Stable: Yes Hydration Status Stable: Yes Pain Control Satisfactory: Yes Nausea and Vomiting Control Satisfactory: Yes Mental Status Recovered: Yes Vital Signs: Last Vital Signs Temp 36.4 C 04/16/20 10:30 Pulse 118 H 04/16/20 10:30 Resp 20 04/16/20 10:30 BP 121/64 04/16/20 10:30 Pulse Ox 97 04/16/20 10:30
--- NOTE | 2020-04-16 13:04 | PCM.OPNOTE ---
- General Post-Op/Procedure Note Date of Surgery/Procedure: 04/16/20 Operative Procedure(s): EGD Findings: 1. Irregular GE junction 2. Gastritis Pre Op Diagnosis: Hematemesis Post-Op Diagnosis: same Anesthesia Technique: General ET Tube Primary Surgeon: Crista Conte Anesthesia Provider: Karime Chatterjee Pathology: 1. Gastric antrum 2. GE junction Fluid Replacement, Intraop: 600 Output, Urine Amount: 0 EBL in mLs: 0 Complications: none apparent Condition: Good
--- NOTE | 2020-04-16 13:10 | PCM.PRNOTE ---
- Free Text/Narrative Note: Operative Report Date of procedure: April 16, 2020 Preoperative diagnosis: Hematemesis Postoperative diagnosis: same Surgeon: Crista Conte M.D. Procedure: EGD Anesthesia: MAC Contact Person: Karime Chatterjee CRNA IV fluids: 600mL Estimated blood loss: 0 mL Specimens: 1. Gastric antrum biopsies 2. GE junction biopsies Indication: The patient is a 25-year-old lady who presented with a history of hematemesis. The patient was consented for an EGD with intervention. Risk of bleeding and perforation were discussed. The patient's consent was obtained Description of the procedure: The patient was taken to the endoscopy suite and placed on hemodynamic monitoring. The nurse lance crewmember/mlrs sergeant induced MAC anesthesia. A bite block was placed. The patient was positioned in the left lateral decubitus position. A timeout was performed. The endoscope was gently placed into the mouth to the back of the pharynx and introduced into the esophagus. The scope was gently advanced down to the level of the lower esophageal sphincter. The stomach was then entered. Normal rugal folds were noted. The scope was advanced into the antrum. We noted a few specks of blood consistent with hemorrhagic gastritis. There was erythema of the antral mucosa. The pylorus was then entered and the first and second portion of the duodenum was inspected. There were no ulcerations in the duodenum. The scope was withdrawn into the antrum and antral biopsies were taken with a cold biopsy forceps. The scope was then retroflexed in the cardia and fundus were investigated. There is no evidence of any hiatal hernia There was hypertrophy of the gastric mucosa at the Z line, which was biopsied using cold biopsy forceps. No other abnormalities were noted. The scope was then withdrawn while inspecting the esophagus. There was no esophagitis. The procedure was terminated. the patient tolerated the procedure well without any evidence of complications. Crista Conte MD General Surgery
[2020-04-16 14:00] VITALS: BP 107/64; PULSE 84
== END 2020-04-16 13:45 | disposition home or self-care (01) ==
LOC: JD.SDS 10:25
PROVIDERS: ATTEND Surgery
DX: K29.50 Unspecified chronic gastritis without bleeding (principal); K31.89 Other diseases of stomach and duodenum; F41.9 Anxiety disorder, unspecified; F32.9 Major depressive disorder, single episode, unspecified; K59.00 Constipation, unspecified; R07.9 Chest pain, unspecified; E66.9 Obesity, unspecified; F17.210 Nicotine dependence, cigarettes, uncomplicated; Z11.59 Encounter for screening for other viral diseases; Z79.899 Other long term (current) drug therapy; Z91.040 Latex allergy status; Z68.41 Body mass index [BMI] 40.0-44.9, adult
CPT/HCPCS: 43239; 81025; 87635; J2001; J2250; J2704; J3010; J7120; 00731; U0002

== ENCOUNTER 2020-07-24 10:24 | Emergency (ER) | payer BC, OTHER ==
[2020-07-24 11:02] VITALS: BP 131/89; PULSE 97
[2020-07-24] MEDS ORDERED: Orphenadrine 100 MG Tab.ER PO ONE (11:38)
[2020-07-24] MEDS ORDERED: Ketorolac 60 MG/2 ML SDV IM ONE (11:38)
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
== END 2020-07-24 12:36 | disposition home or self-care (01) ==
LOC: JD.ED 10:24
DX: M54.42 Lumbago with sciatica, left side (principal); F17.210 Nicotine dependence, cigarettes, uncomplicated; F41.9 Anxiety disorder, unspecified; F32.9 Major depressive disorder, single episode, unspecified; E66.9 Obesity, unspecified; Z91.048 Other nonmedicinal substance allergy status; Z91.040 Latex allergy status
CPT/HCPCS: 96372; 99283; A9270; J1885

== ENCOUNTER 2020-07-29 11:42 | Emergency (ER) | payer BC ==
[2020-07-29] MEDS ORDERED: Sodium Chloride 0.9% 10 ML Syringe FLUSH PRN (12:30)
[2020-07-29] MEDS ORDERED: Alum Hydrox/Mag Hydrox/Simeth 30 ML, Lidocaine 2% 15 ML PO ONE ×2 (12:30)
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
--- NOTE | 2020-07-29 14:20 | CR ---
PROCEDURE INFORMATION: Exam: XR Chest, 2 Views Exam date and time: 07/29/2020 1:03 PM Age: 25 years old Clinical indication: Chest pain TECHNIQUE: Imaging protocol: XR of the chest Views: 2 views. COMPARISON: OT Chest 1V Frontal 11/27/2018 6:06 AM FINDINGS: Lungs: Unremarkable. No consolidation. Pleural space: Unremarkable. No pleural effusion. No pneumothorax. Heart/Mediastinum: Unremarkable. No cardiomegaly. Bones/joints: Unremarkable. IMPRESSION: No acute findings. Thank you for allowing us to participate in the care of your patient. Dictated and Authenticated by: Katty Fuller MD 07/29/2020 2:29 PM Central Time ([place] & [place]) [place]
[2020-07-29 14:50] VITALS: BP 120/70; PULSE 70
== END 2020-07-29 14:50 | disposition home or self-care (01) ==
LOC: JD.ED 11:42
DX: K21.00 Gastro-esophageal reflux disease with esophagitis, without bleeding (principal); F41.9 Anxiety disorder, unspecified; F32.9 Major depressive disorder, single episode, unspecified; F17.210 Nicotine dependence, cigarettes, uncomplicated; E66.9 Obesity, unspecified; Z68.41 Body mass index [BMI] 40.0-44.9, adult; Z91.048 Other nonmedicinal substance allergy status; Z91.040 Latex allergy status; Z79.899 Other long term (current) drug therapy
CPT/HCPCS: 36415; 71046; 80053; 84484; 85025; 85379; 86140; 99285; A9270; 93010; 99283

== ENCOUNTER 2020-10-08 10:43 | Emergency (ER) | payer BC ==
[2020-10-08] MEDS ORDERED: Alum Hydrox/Mag Hydrox/Simeth 30 ML, Lidocaine 2% 15 ML PO ONE ×2 (11:08)
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
--- NOTE | 2020-10-08 12:19 | CR ---
Chest: Portable view of the chest was obtained. Compparison: Prior chest x-ray of 11/27/18. Heart size and mediastinum are within normal limits. Lungs are clear with no acute parenchymal change. No discrete osseous abnormality is appreciated. Impression: 1. Nothing acute is appreciated on portable chest x-ray. Diagnostic code #1
[2020-10-08 12:31] VITALS: BP 115/75; PULSE 108
== END 2020-10-08 12:24 | disposition home or self-care (01) ==
LOC: JD.ED 10:43
DX: K21.00 Gastro-esophageal reflux disease with esophagitis, without bleeding (principal); E66.9 Obesity, unspecified; Z68.41 Body mass index [BMI] 40.0-44.9, adult; Z91.048 Other nonmedicinal substance allergy status; Z91.040 Latex allergy status; Z79.899 Other long term (current) drug therapy; Z72.0 Tobacco use
CPT/HCPCS: 36415; 71045; 80053; 84484; 85025; 93005; 99284; A9270; 93010; 99283

== ENCOUNTER 2020-10-09 19:52 | Emergency (ER) | payer BC ==
[2020-10-09 20:09] VITALS: BP 131/89; PULSE 86
[2020-10-09] MEDS ORDERED: Famotidine 20 MG/2 ML SDV IVPUSH ONE (20:21)
[2020-10-09] MEDS ORDERED: methylPREDNISolone Sodium Succinate 125 MG/2 ML SDV IVPUSH ONE (20:21)
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
[2020-10-09] MEDS ORDERED: Sucralfate Suspension 1 GM/10 ML Cup ONE (20:53)
[2020-10-09] MEDS ORDERED: Sucralfate 1 GM Tab PO ONE (20:55)
== END 2020-10-09 21:30 | disposition home or self-care (01) ==
LOC: JD.ED 19:52
DX: K20.90 Esophagitis, unspecified without bleeding (principal); E66.9 Obesity, unspecified; Z68.41 Body mass index [BMI] 40.0-44.9, adult; Z72.0 Tobacco use; Z91.048 Other nonmedicinal substance allergy status; Z91.040 Latex allergy status; Z79.899 Other long term (current) drug therapy
CPT/HCPCS: 96374; 96375; 99283; A9270; J2930; J3490

== ENCOUNTER 2020-10-12 16:58 | Emergency (ER) | payer BC ==
[2020-10-12 17:19] VITALS: BP 114/75; PULSE 65
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
== END 2020-10-12 19:35 | disposition home or self-care (01) ==
LOC: JD.ED 16:58
DX: K21.9 Gastro-esophageal reflux disease without esophagitis (principal); E66.9 Obesity, unspecified; Z68.41 Body mass index [BMI] 40.0-44.9, adult; Z87.891 Personal history of nicotine dependence; Z91.048 Other nonmedicinal substance allergy status; Z91.040 Latex allergy status; Z88.8 Allergy status to other drugs, medicaments and biological substances; Z79.899 Other long term (current) drug therapy
CPT/HCPCS: 99283

== ENCOUNTER 2020-10-14 09:15 | Day surgery (SDC) | payer BC ==
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
[2020-10-14] MEDS ORDERED: Midazolam 1 MG/ML 2 ML SDV ONE (10:01)
[2020-10-14] MEDS ORDERED: Propofol 200 MG/20 ML SDV ONE ×2 (10:01→10:46)
[2020-10-14] MEDS ORDERED: Lidocaine 1% 4 ML ONE ×2 (10:02→10:42)
--- NOTE | 2020-10-14 11:05 | PCM48HPAN ---
Post Anesthesia Note - EVALUATION WITHIN 48HRS OF ANESTHETIC Vital Signs in Normal Range: Yes Patient Participated in Evaluation: Yes Respiratory Function Stable: Yes Airway Patent: Yes Cardiovascular Function Stable: Yes Hydration Status Stable: Yes Pain Control Satisfactory: Yes Nausea and Vomiting Control Satisfactory: Yes Mental Status Recovered: Yes Vital Signs: Last Vital Signs Temp 36.6 C 10/14/20 09:35 Pulse 94 10/14/20 09:35 Resp 18 10/14/20 09:35 BP 118/69 10/14/20 09:35 Pulse Ox 98 10/14/20 09:35 - COMMENTS/OBSERVATIONS Free Text/Narrative:: no anesthesia complications noted
--- NOTE | 2020-10-14 11:13 | PCM.PRNOTE ---
- Free Text/Narrative Note: Date: 10/14/2020 Procedure: diagnostic EGD Indication: dysphagia Endoscopist: Dami Tirado MD Findings: small sliding hiatal hernia with apparent gross inflammatory changes of the distal esophagus. Detailed Report: The patient was taken to the endoscopy suite and placed in left lateral decubitus position. A bite-block was placed, timeout was performed and monitored anesthesia care was initiated. The endoscope was inserted into the mouth and advanced to the second portion of the duodenum. Duodenal mucosa appeared grossly normal. Biopsies from the second portion of the duodenum and the duodenal bulb were obtained with cold forceps. The scope was then withdrawn into the stomach. The pylorus and gastric antrum appeared grossly normal. A biopsy of the gastric antrum was obtained. The incisura appeared normal without evidence of ulceration. On retroflexion of the scope within the stomach, there was an apparent small sliding hiatal hernia. A biopsy of the gastric cardia was obtained. The scope was then withdrawn into the distal portion of the esophagus. There appeared to be some inflammatory exudate near the Z-line. A biopsy of the GE junction was obtained. A biopsy of distal esophageal mucosa, which appeared normal and pink in appearance, was also obtained. Air was suctioned from the stomach, and the scope was slowly withdrawn. The remainder of the esophagus appeared normal. The larynx and vocal cords were visualized and appeared normal. The patient tolerated the procedure well.
[2020-10-14 11:37] VITALS: BP 111/67; PULSE 67
== END 2020-10-14 11:36 | disposition home or self-care (01) ==
LOC: JD.SDS 09:15
PROVIDERS: ATTEND Surgery
DX: K21.00 Gastro-esophageal reflux disease with esophagitis, without bleeding (principal); K31.89 Other diseases of stomach and duodenum; K44.9 Diaphragmatic hernia without obstruction or gangrene; K21.9 Gastro-esophageal reflux disease without esophagitis; I25.10 Atherosclerotic heart disease of native coronary artery without angina pectoris; E66.9 Obesity, unspecified; F17.200 Nicotine dependence, unspecified, uncomplicated; Z01.812 Encounter for preprocedural laboratory examination; Z20.822 Contact with and (suspected) exposure to COVID-19; Z79.899 Other long term (current) drug therapy; Z98.890 Other specified postprocedural states; Z91.040 Latex allergy status; Z91.048 Other nonmedicinal substance allergy status; Z90.49 Acquired absence of other specified parts of digestive tract; Z68.39 Body mass index [BMI] 39.0-39.9, adult
CPT/HCPCS: 43239; 81025; J2001; J2250; J2704; J7120; 00731

== ENCOUNTER 2020-11-22 15:20 | Emergency (ER) | payer BC ==
[2020-11-22 15:39] VITALS: BP 121/79; PULSE 121
[2020-11-22] MEDS ORDERED: Sodium Chloride 0.9% 1,000 ML IV ONE (16:02)
[2020-11-22] MEDS ORDERED: Ondansetron 4 MG/2 ML SDV IVPUSH ONE (16:02)
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
--- NOTE | 2020-11-23 11:34 | CR ---
Abdomen: Supine view of the abdomen was obtained. Comparison: Prior abdominal x-ray of 03/20/20. Prior cholecystectomy is noted. Bowel gas pattern is normal. Small phleboliths are seen within the pelvis. No acute soft tissue abnormality is noted. Bony structures are unremarkable. Impression: 1. Nothing acute is seen on supine abdominal x-ray. Diagnostic code #2
== END 2020-11-22 18:12 | disposition home or self-care (01) ==
LOC: JD.ED 15:20
DX: R10.11 Right upper quadrant pain (principal); K21.9 Gastro-esophageal reflux disease without esophagitis; E66.9 Obesity, unspecified; Z68.38 Body mass index [BMI] 38.0-38.9, adult; Z91.048 Other nonmedicinal substance allergy status; Z91.040 Latex allergy status; Z88.8 Allergy status to other drugs, medicaments and biological substances; Z79.899 Other long term (current) drug therapy; Z72.0 Tobacco use
CPT/HCPCS: 36415; 74018; 80053; 81003; 82150; 83690; 83735; 85025; 86140; 96374; 99284; J2405; J7030

== ENCOUNTER 2021-02-03 11:14 | Emergency (ER) | payer BC, OTHER ==
[2021-02-03] MEDS ORDERED: diphenhydrAMINE 50 MG/ML SDV IVPUSH ONE (11:22)
[2021-02-03 11:25] VITALS: BP 123/78; PULSE 106
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
[2021-02-03] MEDS ORDERED: Dextrose 5%-0.9% NaCl 1,000 ML IV SCH (11:30)
[2021-02-03] MEDS ORDERED: Benztropine 1 MG Tab PO ONE (13:49)
--- NOTE | 2021-02-03 15:16 | CT ---
Head CT Technique: Multiple axial sections were brain were obtained. Intravenous contrast was not utilized. Reconstructed coronal and sagittal images were also obtained. Comparison: Prior head CT exam of 09/17/18. Findings: Ventricles along with basal cisterns and sulci over the convexities are within normal limits for the patient's age. No abnormal parenchymal densities are seen. No evidence of intracranial hemorrhage. No midline shift or mass-effect is appreciated. Bone window settings were reviewed. Visualized paranasal sinuses and mastoid sinuses show nothing acute. No acute calvarial finding is seen. Impression: 1. Nothing acute is appreciated on noncontrast head CT exam. 2. Given the patient's history, consider MRI brain to further evaluate. Diagnostic code #1
== END 2021-02-03 15:40 | disposition home or self-care (01) ==
LOC: JD.ED 11:14
DX: G24.01 Drug induced subacute dyskinesia (principal); T43.295A Adverse effect of other antidepressants, initial encounter; K21.9 Gastro-esophageal reflux disease without esophagitis; E66.9 Obesity, unspecified; Z91.048 Other nonmedicinal substance allergy status; Z91.040 Latex allergy status; Z88.8 Allergy status to other drugs, medicaments and biological substances; Z79.899 Other long term (current) drug therapy
CPT/HCPCS: 36415; 70450; 80053; 83735; 85025; 96374; 99284; A9270; J1200; J7042

== ENCOUNTER 2021-02-04 17:59 | Emergency (ER) | payer BC, OTHER ==
[2021-02-04 18:30] VITALS: BP 119/80; PULSE 95
[2021-02-04] MEDS ORDERED: LORazepam 2 MG/ML SDV IM ONE (19:01)
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
== END 2021-02-04 19:55 | disposition home or self-care (01) ==
LOC: JD.ED 17:59
DX: F41.9 Anxiety disorder, unspecified (principal); Z72.0 Tobacco use; Z91.09 Other allergy status, other than to drugs and biological substances; Z91.048 Other nonmedicinal substance allergy status; Z91.040 Latex allergy status
CPT/HCPCS: 96372; 99282; 99283; J2060

== ENCOUNTER 2021-02-08 23:23 | Emergency (ER) | payer BC, OTHER ==
[2021-02-08 23:37] VITALS: BP 141/89; PULSE 104
[2021-02-08] MEDS ORDERED: Famotidine 20 MG/2 ML SDV IVPUSH ONE (23:39)
[2021-02-08] MEDS ORDERED: LORazepam 2 MG/ML SDV IVPUSH ONE (23:39)
[2021-02-08] MEDS ORDERED: diphenhydrAMINE 50 MG/ML SDV IVPUSH ONE (23:39)
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
[2021-02-08] MEDS ORDERED: methylPREDNISolone Sodium Succinate 125 MG/2 ML SDV IVPUSH ONE (23:40)
== END 2021-02-09 01:45 | disposition home or self-care (01) ==
LOC: JD.ED 23:23
DX: R22.0 Localized swelling, mass and lump, head (principal); T43.225A Adverse effect of selective serotonin reuptake inhibitors, initial encounter; E66.9 Obesity, unspecified; Z91.09 Other allergy status, other than to drugs and biological substances; Z91.040 Latex allergy status; Z91.048 Other nonmedicinal substance allergy status; Z88.8 Allergy status to other drugs, medicaments and biological substances
CPT/HCPCS: 96374; 96375; 99283; J1200; J2060; J2930; J3490

== ENCOUNTER 2021-02-10 11:04 | Emergency (ER) | payer BC, OTHER ==
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
[2021-02-10] MEDS ORDERED: Dextrose 5%-Lactated Ringers 1,000 ML IV SCH (11:45)
[2021-02-10] MEDS ORDERED: diphenhydrAMINE 50 MG/ML SDV IVPUSH ONE (11:46)
[2021-02-10] MEDS ORDERED: Metoclopramide 10 MG/2 ML SDV IVPUSH ONE (11:46)
[2021-02-10] MEDS ORDERED: HYDROmorphone 1 MG/ML Syringe IVPUSH ONE (11:47)
[2021-02-10] MEDS ORDERED: Ketorolac 30 MG/ML SDV IVPUSH SCH (12:00)
[2021-02-10 14:52] VITALS: BP 114/66; PULSE 100
== END 2021-02-10 15:30 | disposition home or self-care (01) ==
LOC: JD.ED 11:04
DX: R55 Syncope and collapse (principal); R56.9 Unspecified convulsions; K21.9 Gastro-esophageal reflux disease without esophagitis; E66.9 Obesity, unspecified; Z68.37 Body mass index [BMI] 37.0-37.9, adult; Z91.048 Other nonmedicinal substance allergy status; Z91.040 Latex allergy status; Z79.899 Other long term (current) drug therapy
CPT/HCPCS: 36415; 81001; 82550; 85025; 86140; 93005; 96374; 96375; 99284; J1170; J1200; J1885; J2765; J7121; 93010

== ENCOUNTER 2021-02-12 20:35 | Emergency (ER) | payer BC, OTHER ==
[2021-02-12 20:48] VITALS: BP 114/84; PULSE 105
[2021-02-12] MEDS ORDERED: Sodium Chloride 0.9% 10 ML Syringe FLUSH PRN (21:10)
[2021-02-12] MEDS ORDERED: Sodium Chloride 0.9% 1,000 ML IV ONE (21:10)
[2021-02-12] MEDS ORDERED: Metoclopramide 10 MG/2 ML SDV IVPUSH ONE (21:11)
[2021-02-12] MEDS ORDERED: diphenhydrAMINE 50 MG/ML SDV IVPUSH ONE (21:11)
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
== END 2021-02-12 22:25 | disposition home or self-care (01) ==
LOC: JD.ED 20:35
DX: R42 Dizziness and giddiness (principal); T42.6X5A Adverse effect of other antiepileptic and sedative-hypnotic drugs, initial encounter; Z91.040 Latex allergy status; Z91.048 Other nonmedicinal substance allergy status; Z88.8 Allergy status to other drugs, medicaments and biological substances; Z72.0 Tobacco use
CPT/HCPCS: 96374; 96375; 99283; J1200; J2765; J7030

== ENCOUNTER 2021-05-14 14:25 | Emergency (ER) | payer BC ==
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
[2021-05-14 17:41] VITALS: BP 125/55; PULSE 89
== END 2021-05-14 17:25 | disposition home or self-care (01) ==
LOC: JD.ED 14:25
DX: R56.9 Unspecified convulsions (principal); R55 Syncope and collapse; E66.9 Obesity, unspecified; Z68.30 Body mass index [BMI] 30.0-30.9, adult; Z72.0 Tobacco use; Z91.09 Other allergy status, other than to drugs and biological substances; Z91.040 Latex allergy status; Z88.8 Allergy status to other drugs, medicaments and biological substances; Z91.048 Other nonmedicinal substance allergy status
CPT/HCPCS: 36415; 80053; 81001; 81025; 83605; 83735; 85025; 86140; 87086; 93005; 93010; 99283; 99284-25

== ENCOUNTER 2021-11-06 09:47 | Emergency (ER) | payer BC ==
[2021-11-06 09:56] VITALS: BP 121/80; PULSE 95
[2021-11-06] MEDS ORDERED: diphenhydrAMINE 50 MG/ML SDV IVPUSH ONE (09:59)
[2021-11-06] MEDS ORDERED: methylPREDNISolone Sodium Succinate 125 MG/2 ML SDV IVPUSH ONE (09:59)
[2021-11-06] MEDS ORDERED: Famotidine 20 MG/2 ML SDV IVPUSH ONE (09:59)
[2021-11-06] MEDS ORDERED: Sodium Chloride 0.9% 10 ML Syringe FLUSH PRN (09:59)
== END 2021-11-06 11:30 | disposition home or self-care (01) ==
LOC: JD.ED 09:47
DX: T78.40XA Allergy, unspecified, initial encounter (principal); E66.9 Obesity, unspecified; Z68.38 Body mass index [BMI] 38.0-38.9, adult; Z91.048 Other nonmedicinal substance allergy status; Z91.040 Latex allergy status
CPT/HCPCS: 96374; 96375; 99283; J1200; J2930; J3490; 99284

== ENCOUNTER 2022-02-02 18:31 | Emergency (ER) | payer BC ==
[2022-02-02 18:48] VITALS: BP 99/57; PULSE 90
[2022-02-02] MEDS ORDERED: Benztropine 1 MG Tab PO STA (19:53)
[2022-02-02] MEDS ORDERED: Ondansetron 4 MG/2 ML SDV IVPUSH ONE (19:53)
[2022-02-02] MEDS ORDERED: Sodium Chloride 0.9% 1,000 ML IV ONE (19:53)
[2022-02-02] MEDS ORDERED: Haloperidol Lactate 5 MG/ML SDV IM ONE (19:53)
== END 2022-02-02 21:37 | disposition home or self-care (01) ==
LOC: JD.ED 18:31
DX: G43.909 Migraine, unspecified, not intractable, without status migrainosus (principal); K21.9 Gastro-esophageal reflux disease without esophagitis; E66.9 Obesity, unspecified; Z68.30 Body mass index [BMI] 30.0-30.9, adult; Z91.040 Latex allergy status; Z91.048 Other nonmedicinal substance allergy status; Z88.8 Allergy status to other drugs, medicaments and biological substances; Z72.0 Tobacco use
CPT/HCPCS: 70450; 96372; 96374; 99284; A9270; J1630; J2405; J7030